=== PATIENT | male | born 1945 | race Caucasian/White ===

== ENCOUNTER 2017-02-17 10:21 | Emergency (ER) | payer MEDICARE, OTHER ==
[~2017-02-17] VITALS: Ht 180.3 cm; Wt 94.8 kg
[~2017-02-17 10:21] MED LIST: ALBU90OI INH; ASPI81EC PO; ATOR40TA PO; BENZ100A PO; CARV6.25 PO; CHOL10002 PO; CIPR500 PO; Coumadin4 MG PO; DOXY100 PO; FOLI1 PO; FURO20 PO; Hair, Skin & N1 EACH PO; INSDET100; INSDET100 SC; INSDET100 SUBQ; INSLI100I; INSLIS75I SC; INSULIN; IRBE150 PO; LAVAP17G PO; LEVO750 PO; LISI5 PO; MAGCIT300 PO; MELO7.5 PO; METF500 PO; METO25 PO; METO25ER PO; MULVITMIND PO; MULVITMINF PO; Mucinex600 MG PO; Norco 5-325 Ta1 EACH PO; OMEP20ER PO; POTCHL10ER PO; PRAV20 PO; PRED20 PO; PROCODE120 PO; SIMV80 PO; Valium5 MG PO; WARF2 PO; WARF3 PO; WARF4 PO; [UNRECOGNIZED DRUG - REMARK]; [UNRECOGNIZED DRUG - REMARK]
[2017-02-17 14:26] LABS: BASOPHILS ABSOLUTE AUTO 0.03 K/mm3 (0.00-0.23); BASOPHILS PERCENT AUTO 0 % (0-2); EOSINOPHILS ABSOLUTE AUTO 0.26 K/mm3 (0.00-0.68); EOSINOPHILS PERCENT AUTO 3 % (0-6); Hematocrit 42.3 % (37.0-53.0); Hemoglobin 13.8 g/dL (13.5-17.5); IMMATURE GRAN ABSOLUTE AUTO 0.04 K/mm3 (0.00-0.10); IMMATURE GRAN PERCENT AUTO 0 % (0-1); LYMPHOCYTES ABSOLUTE AUTO 2.16 K/mm3 (0.84-5.20); LYMPHOCYTES PERCENT AUTO 21 % (21-46); MONOCYTES ABSOLUTE AUTO 0.81 K/mm3 (0.16-1.47); MONOCYTES PERCENT AUTO 8 % (4-13); Mean Corpuscular HGB 30.1 pg (26.0-34.0); Mean Corpuscular HGB Conc 32.6 g/dL (31.5-36.5); Mean Corpuscular Volume 92 fL (80-100); Mean Platelet Volume 10.8 fL (9.1-12.4); NEUTROPHILS ABSOLUTE AUTO 7.07 K/mm3 (1.96-9.15); NEUTROPHILS PERCENT AUTO 68 % (41-73); Platelet Count 218 K/mm3 (150-400); RDW Coefficient Variation 14.6 % (11.7-14.2); RDW Standard Deviation 49.7 fL (35.1-46.3); Red Blood Cell Count 4.59 M/mm3 (4.30-5.90); White Blood Cell Count 10.37 K/mm3 (4.00-11.30)
[2017-02-17 14:39] LABS: International Normalized Ratio 1.81; Prothrombin Time Results 19.2 Sec (9.7-11.5)
[2017-02-17 14:48] LABS: Albumin, Blood 3.9 g/dL (3.4-5.0); Albumin/Globulin Ratio 0.9 (0.8-1.8); Bilirubin, Total 0.8 mg/dL (0.1-1.0); Bun/Creatinine Ratio 21.3 (12.0-20.0); Calcium, Blood 8.6 mg/dL (8.5-10.1); Creatinine, Blood 1.88 mg/dL (0.60-1.20); Globulin, Blood 4.4 g/dL (2.2-4.0); Potassium, Blood 4.6 mmol/L (3.5-5.5); Total Protein, Blood 8.3 g/dL (6.4-8.2); Troponin I 0.024 ng/mL (0.000-0.040)
== END 2017-02-17 17:16 | disposition home or self-care (01) ==
LOC: ER 10:21
PROVIDERS: Emergency Medicine
DX: J02.9 Acute pharyngitis, unspecified (principal); I11.0 Hypertensive heart disease with heart failure; I50.9 Heart failure, unspecified; E11.9 Type 2 diabetes mellitus without complications; E78.00 Pure hypercholesterolemia, unspecified; K21.9 Gastro-esophageal reflux disease without esophagitis; I48.91 Unspecified atrial fibrillation; I25.10 Atherosclerotic heart disease of native coronary artery without angina pectoris; Z79.01 Long term (current) use of anticoagulants; Z79.899 Other long term (current) drug therapy; Z79.4 Long term (current) use of insulin; Z95.1 Presence of aortocoronary bypass graft; Z95.0 Presence of cardiac pacemaker; Z87.891 Personal history of nicotine dependence
CPT/HCPCS: 36415; 71046; 80053; 83880; 84484; 85025; 85610; 87081; 87430; 93005; 93010; 99283

== ENCOUNTER → 2017-05-17 | Outpatient (CLI) | payer MEDICARE, OTHER ==
[2017-05-17 11:48] LABS: Source, Urine Clean Catch
[2017-05-17 13:29] LABS: Appearance, Urine Clear (Clear); Bilirubin, Urine Neg (Neg); Blood, Urine Neg (Neg); Color, Urine Yellow (P-Yellow); Glucose Qualitative, Urine Neg (Normal); Ketones, Urine Neg (Neg); Leukocyte Esterase, Urine Neg (Neg); Nitrite, Urine Neg (Neg); Protein, Urine Neg (Neg); Specific Gravity, Urine 1.015 (1.003-1.022); Urobilinogen, Urine NORM (Normal)
== END | disposition home or self-care (01) ==
LOC: LAB SHORT 11:45 → LAB EV 11:45
PROVIDERS: Urology
DX: N39.0 Urinary tract infection, site not specified (principal)
CPT/HCPCS: 81003; 87086

== ENCOUNTER 2018-05-03 17:43 | Emergency (ER) | payer MEDICARE, OTHER ==
[~2018-05-03] VITALS: Ht 177.8 cm; Wt 93.0 kg
[2018-05-03 19:06] LABS: BASOPHILS ABSOLUTE AUTO 0.06 K/mm3 (0.00-0.23); BASOPHILS PERCENT AUTO 1 % (0-2); EOSINOPHILS ABSOLUTE AUTO 0.22 K/mm3 (0.00-0.68); EOSINOPHILS PERCENT AUTO 2 % (0-6); Hematocrit 38.3 % (37.0-53.0); Hemoglobin 12.6 g/dL (13.5-17.5); IMMATURE GRAN ABSOLUTE AUTO 0.04 K/mm3 (0.00-0.10); IMMATURE GRAN PERCENT AUTO 0 % (0-1); LYMPHOCYTES PERCENT AUTO 19 % (21-46); MONOCYTES ABSOLUTE AUTO 1.15 K/mm3 (0.16-1.47); MONOCYTES PERCENT AUTO 11 % (4-13); Mean Corpuscular HGB 30.1 pg (26.0-34.0); Mean Corpuscular HGB Conc 32.9 g/dL (31.5-36.5); Mean Corpuscular Volume 92 fL (80-100); Mean Platelet Volume 10.7 fL (9.1-12.4); NEUTROPHILS ABSOLUTE AUTO 7.11 K/mm3 (1.96-9.15); NEUTROPHILS PERCENT AUTO 67 % (41-73); Platelet Count 191 K/mm3 (150-400); RDW Coefficient Variation 14.3 % (11.7-14.2); RDW Standard Deviation 47.6 fL (35.1-46.3); Red Blood Cell Count 4.18 M/mm3 (4.30-5.90); White Blood Cell Count 10.58 K/mm3 (4.00-11.30)
[2018-05-03 19:22] LABS: International Normalized Ratio 1.65; Prothrombin Time Results 16.7 Sec (9.7-11.5)
[2018-05-03 19:30] LABS: Albumin, Blood 3.7 g/dL (3.4-5.0); Albumin/Globulin Ratio 0.9 (0.8-1.8); Bilirubin, Total 0.5 mg/dL (0.1-1.0); Bun/Creatinine Ratio 26.6 (12.0-20.0); Calcium, Blood 8.6 mg/dL (8.5-10.1); Creatinine, Blood 1.54 mg/dL (0.60-1.20); Potassium, Blood 4.3 mmol/L (3.5-5.5); Total Protein, Blood 7.7 g/dL (6.4-8.2)
[2018-05-03] MEDS ORDERED: Keflex500 MG PO (19:41)
== END 2018-05-03 20:00 | disposition home or self-care (01) ==
LOC: ER 17:43
PROVIDERS: Emergency Medicine
DX: L03.115 Cellulitis of right lower limb (principal); I11.0 Hypertensive heart disease with heart failure; I50.9 Heart failure, unspecified; E11.9 Type 2 diabetes mellitus without complications; E78.00 Pure hypercholesterolemia, unspecified; K21.9 Gastro-esophageal reflux disease without esophagitis; I48.91 Unspecified atrial fibrillation; I25.10 Atherosclerotic heart disease of native coronary artery without angina pectoris; Z79.899 Other long term (current) drug therapy; Z79.01 Long term (current) use of anticoagulants; Z79.4 Long term (current) use of insulin; Z87.891 Personal history of nicotine dependence; Z51.81 Encounter for therapeutic drug level monitoring
CPT/HCPCS: 80053; 85025; 85610; 85730; 93971; 99284-25

== ENCOUNTER → 2019-03-30 | Outpatient (CLI) | payer MEDICARE, OTHER ==
[~2019-03-30] MED LIST changes: +Keflex500 MG PO
== END | disposition home or self-care (01) ==
LOC: LAB 16:00 → LAB SHORT 16:00
DX: E10.40 Type 1 diabetes mellitus with diabetic neuropathy, unspecified (principal)
CPT/HCPCS: 87070; 87075; 87077; 87147; 87186; 87205

== ENCOUNTER → 2019-07-13 | Outpatient (CLI) | payer MEDICARE, OTHER ==
[2019-07-13 12:50] LABS: Source, Urine Clean Catch
[2019-07-13 13:11] LABS: Appearance, Urine Cloudy (Clear); Bilirubin, Urine Neg (Neg); Blood, Urine Trace (Neg); Color, Urine Yellow (P-Yellow); Glucose Qualitative, Urine Neg (Normal); Ketones, Urine Neg (Neg); Leukocyte Esterase, Urine 2+ (Neg); Nitrite, Urine Pos (Neg); Protein, Urine Neg (Neg); Urobilinogen, Urine NORM (Normal)
[2019-07-13 13:12] LABS: Bacteria Mod /hpf; Hyaline Casts 0-2 /lpf (0-2); Red Blood Cells, Urine 0-2 /hpf (0-2); Squamous Epithelial Cells Rare /hpf (Few); White Blood Cells, Urine 25-50 /hpf (0-5)
== END ==
LOC: LAB SHORT 12:48 → LAB EV 12:48 → LAB FUT 07-12 10:40
PROVIDERS: Internal Medicine
DX: Z09 Encounter for follow-up examination after completed treatment for conditions other than malignant neoplasm (principal); Z87.440 Personal history of urinary (tract) infections
CPT/HCPCS: 81001; 87077; 87086; 87186

== ENCOUNTER → 2019-09-14 | Outpatient (CLI) | payer MEDICARE, OTHER ==
[2019-09-14 11:25] LABS: Source, Urine Clean Catch
[2019-09-14 11:42] LABS: Appearance, Urine Cloudy (Clear); Bilirubin, Urine Neg (Neg); Blood, Urine Neg (Neg); Color, Urine Yellow (P-Yellow); Glucose Qualitative, Urine Neg (Normal); Ketones, Urine Neg (Neg); Leukocyte Esterase, Urine 1+ (Neg); Nitrite, Urine Neg (Neg); Protein, Urine Neg (Neg); Specific Gravity, Urine 1.015 (1.003-1.022); Urobilinogen, Urine NORM (Normal)
[2019-09-14 11:43] LABS: Bacteria Many /hpf; Red Blood Cells, Urine Not Seen /hpf (0-2); Squamous Epithelial Cells Rare /hpf (Few)
== END ==
LOC: LAB SHORT 10:20 → LAB EV 10:20 → LAB FUT 08-15 12:20
PROVIDERS: Internal Medicine
DX: N39.0 Urinary tract infection, site not specified (principal)
CPT/HCPCS: 81001

== ENCOUNTER 2021-06-06 19:02 | Inpatient (IN) | payer MEDICARE, OTHER ==
[~2021-06-06] VITALS: Ht 182.9 cm; Wt 94.6 kg
[~2021-06-06 19:02] MED LIST changes: +BENZONATATE100 MG PO; +ELIQUIS5 M3 PO; +ENTRESTO 24 MG1 EACH PO; -INSDET100; +LEVEMIR FL100 UNIT/2 SC; +MONT10T PO; +NOVOLOG FL100 UNIT/3 SC; +ONDA4ODT MM; +PANT40 PO; +Pravastatin Sod80 MG PO; +VICTOZA 3-0.6 MG/0.2 SC
[2021-06-06] MEDS ORDERED: IRBE150 (19:22)
[2021-06-06 19:24] LABS: BASOPHILS ABSOLUTE AUTO 0.03 K/mm3 (0.00-0.23); BASOPHILS PERCENT AUTO 0 % (0-2); EOSINOPHILS ABSOLUTE AUTO 0.05 K/mm3 (0.00-0.68); EOSINOPHILS PERCENT AUTO 0 % (0-6); Hematocrit 34.8 % (37.0-53.0); Hemoglobin 11.2 g/dL (13.5-17.5); IMMATURE GRAN ABSOLUTE AUTO 0.13 K/mm3 (0.00-0.10); IMMATURE GRAN PERCENT AUTO 1 % (0-1); LYMPHOCYTES ABSOLUTE AUTO 1.03 K/mm3 (0.84-5.20); LYMPHOCYTES PERCENT AUTO 6 % (21-46); MONOCYTES ABSOLUTE AUTO 1.64 K/mm3 (0.16-1.47); MONOCYTES PERCENT AUTO 9 % (4-13); Mean Corpuscular HGB 30.2 pg (26.0-34.0); Mean Corpuscular HGB Conc 32.2 g/dL (31.5-36.5); Mean Corpuscular Volume 94 fL (80-100); Mean Platelet Volume 10.7 fL (9.1-12.4); NEUTROPHILS ABSOLUTE AUTO 15.36 K/mm3 (1.96-9.15); NEUTROPHILS PERCENT AUTO 84 % (41-73); Platelet Count 159 K/mm3 (150-400); RDW Coefficient Variation 13.9 % (11.7-14.2); RDW Standard Deviation 47.5 fL (35.1-46.3); Red Blood Cell Count 3.71 M/mm3 (4.30-5.90); White Blood Cell Count 18.24 K/mm3 (4.00-11.30)
[2021-06-06 19:41] LABS: Albumin, Blood 2.9 g/dL (3.4-5.0); Albumin/Globulin Ratio 0.7 (0.8-1.8); Bilirubin, Total 0.9 mg/dL (0.1-1.0); Bun/Creatinine Ratio 18.6 (12.0-20.0); Calcium, Blood 8.7 mg/dL (8.5-10.1); Creatinine, Blood 2.69 mg/dL (0.60-1.20); Total Protein, Blood 6.9 g/dL (6.4-8.2)
[2021-06-06 21:48] LABS: Influenza A, PCR NEGATIVE (NEGATIVE); Influenza B, PCR NEGATIVE (NEGATIVE); Resp Syncytial Virus, PCR NEGATIVE (NEGATIVE); SARS-Cov-2 (COVID-19) PCR, MMC NEGATIVE (NEGATIVE)
[2021-06-06 23:39] LABS: Source, Urine Clean Catch
[2021-06-06 23:43] LABS: Bilirubin, Urine Neg (Neg); Blood, Urine 5+ (Neg); Glucose Qualitative, Urine 1+ (Neg); Ketones, Urine Neg (Neg); Leukocyte Esterase, Urine 3+ (Neg); Nitrite, Urine Neg (Neg); Protein, Urine 3+ (Neg); Urobilinogen, Urine NORM (Normal)
[2021-06-06 23:44] LABS: Appearance, Urine Hazy (Clear); Color, Urine Yellow (P-Yellow)
[2021-06-06 23:50] LABS: Amorphous Light (0-Heavy); Bacteria Many /hpf; Red Blood Cells, Urine 50-100 /hpf (0-2); Squamous Epithelial Cells Not Seen /hpf (Few); White Blood Cells, Urine TNTC /hpf (0-5)
[2021-06-07 02:19] LABS: BASOPHILS ABSOLUTE AUTO 0.04 K/mm3 (0.00-0.23); BASOPHILS PERCENT AUTO 0 % (0-2); EOSINOPHILS ABSOLUTE AUTO 0.01 K/mm3 (0.00-0.68); EOSINOPHILS PERCENT AUTO 0 % (0-6); Hemoglobin 10.2 g/dL (13.5-17.5); IMMATURE GRAN ABSOLUTE AUTO 0.14 K/mm3 (0.00-0.10); IMMATURE GRAN PERCENT AUTO 1 % (0-1); LYMPHOCYTES ABSOLUTE AUTO 1.24 K/mm3 (0.84-5.20); LYMPHOCYTES PERCENT AUTO 7 % (21-46); MONOCYTES ABSOLUTE AUTO 1.63 K/mm3 (0.16-1.47); MONOCYTES PERCENT AUTO 10 % (4-13); Mean Corpuscular HGB 30.3 pg (26.0-34.0); Mean Corpuscular HGB Conc 31.9 g/dL (31.5-36.5); Mean Corpuscular Volume 95 fL (80-100); Mean Platelet Volume 10.5 fL (9.1-12.4); NEUTROPHILS ABSOLUTE AUTO 14.08 K/mm3 (1.96-9.15); NEUTROPHILS PERCENT AUTO 82 % (41-73); Platelet Count 141 K/mm3 (150-400); Red Blood Cell Count 3.37 M/mm3 (4.30-5.90); White Blood Cell Count 17.14 K/mm3 (4.00-11.30)
[2021-06-07 02:37] LABS: Albumin, Blood 2.6 g/dL (3.4-5.0); Albumin/Globulin Ratio 0.7 (0.8-1.8); Bilirubin, Total 0.8 mg/dL (0.1-1.0); Bun/Creatinine Ratio 19.1 (12.0-20.0); Calcium, Blood 8.3 mg/dL (8.5-10.1); Creatinine, Blood 2.67 mg/dL (0.60-1.20); Globulin, Blood 3.6 g/dL (2.2-4.0); Potassium, Blood 3.8 mmol/L (3.5-5.5); Total Protein, Blood 6.2 g/dL (6.4-8.2)
--- NOTE | 2021-06-07 04:29 | NUR ---
ADMISSION: PATIENT IS A&OX4, RECIEVED ON UNIT VIA STRETCHER. ABLE TO STAND AND AMB. TO BED. TACHYCARDIC WITH A LOW GRADE TEMP. OBSERVED. SECOND LITER BOLUS IS STARTED. PATIENT IS ORIENTED TO ROOM AND CALL PROCTOR. INSTRUCTED TO CALL FOR ASSIST OOB DUE TO MODERATE FALL RISK AND REPORTED WEAKNESS. PATIENT IS IN ENTERIC CONTACT PRECAUTIONS UNTIL STOOL FOR GI PANEL IS SENT AND RESULT'S OBTAINED TO R/O C-DIFF. PATIENT REPORT STRAIGHT CATH'S AT HOME Q 6 H. STRAIGHT CATHED IN ER AT 2335.
--- NOTE | 2021-06-07 07:47 | NUR ---
SHIFT SUMMARY: pATIENT DEVELOPED A NON PRO COUGH RESPIRATORY RATE WAS 40. LUNGS DEVELOPED CRACKLES WITH EXPIRATORY WHEEZES, HEART RATE TACHYCARDIC. PATIENT STRAIGHT CATHS AT HOME Q 6H. DR EVERETT WAS NOTIFIED. ORDER FOR 40MG LASIX IV NOW, PLACE HARTLEY AND PUT PATIENT ON CPAP/BIPAP IF RESPIRATORY RATE DOES NOT INPROVE.
[2021-06-07 11:55] LABS: Adenovirus F 40/41 Not Detected (NOT DETECT); Campylobacter Sp Not Detected (NOT DETECT); Cryptosporidium Not Detected (NOT DETECT); Cyclospora Cayetanensis Not Detected (NOT DETECT); E. Coli O157 Not Detected (NOT DETECT); Entamoeba Histolytica Not Detected (NOT DETECT); Enteroaggregative E. coli-EAEC Not Detected (NOT DETECT); Enteropathogenic E. coli-EPEC Not Detected (NOT DETECT); Enterotoxigenic E. coli-ETEC Not Detected (NOT DETECT); Giardia Lamblia Not Detected (NOT DETECT); Plesiomonas Shigelloides Not Detected (NOT DETECT); Salmonella Sp Not Detected (NOT DETECT); Shiga Toxin-prod E. coli-STEC Not Detected (NOT DETECT); Shigella/Enteroin E. coli-EIEC Not Detected (NOT DETECT); Vibrio Cholerae Not Detected (NOT DETECT); Vibrio Sp Not Detected (NOT DETECT); Yersinia Enterocolitica Not Detected (NOT DETECT)
[2021-06-07 11:56] LABS: Astrovirus Not Detected (NOT DETECT); Norovirus GI/GII Not Detected (NOT DETECT); Rotavirus A Not Detected (NOT DETECT); Sapovirus Not Detected (NOT DETECT)
--- NOTE | 2021-06-07 17:37 | NUR ---
SHIFT SUMMARY PT HAS BEEN UP IN ROOMS. DR HAS BEEN NOTIFIED SEVERAL TIME OF UNUSUAL VITAL SIGNS. HE HAS HAD SOFT BP, TACHY CARDIA AND AFIB, AND RAPID BREATHING. DR RECCOMENDED GIVING LASIX AND CONTINUING TO MONITOR VITAL SIGNS. PT IS IN NO DISTRESS, NO CHEST PAIN. HE HAS FELT SHORT OF BREATH POSITIONING DOES HELP. COSTUME MISTRESS DOC RECCOMENDED PUTTING HIM ON BIPAP TO HELP. HE HAS NOT TILERATED THE BIPAP WELL AND SAYS IT MAKES HIM FEEL SUFFOCATED. LASIX JUST ADMINISTERED. WILL CONTINUE TO MONITOR.
--- NOTE | 2021-06-07 19:59 | NUR ---
CARDIAC: PATIENT WAS GIVEN CRADIZEM FOR HR IN 140'S. PATIENT HAD FAIR HR NOW 104-112. PATIENT HAS ONLY HAD 175 OUT IN HARTLEY SINCE MULTIPLE DOSES OF LASIX WERE GIVEN. BLADDER SCAN SHOWS 0 IN BLADDER. CONT. PULSE OX ON NOW STA IS 89% 2 L NC IS APPLED.
--- NOTE | 2021-06-07 22:39 | NUR ---
CARDIAC: DR BILL ORDERED LOPRESSOR FOR HR, BP WAS 90/67, TO LOW TO GIVE MED. MIDODRINE WAS ORDERED AND GIVEN. DR BILL CAME TO BEDSIDE TO EVAL PATIENT. BP AFTER MIDODRINE WAS 103/69. LOPRESSOR WAS NONE ADMIN. DR BILL ORDERED DIGOXIN INSTEAD. PATIENT HAD GOOD EFFECT FROM DIGOXIN HR DOWN TO 89-97. PATIENT STATES "I FEEL OK, BUT I AM GETTING CONCERNED". PATIENT REQUESTED MECHANICAL MAINTENANCE TECHNICIAN NOT CALL HIS DANIELE, HE WILL CALL HE IN THE AM. "SHE WILL WORRY ALL NIGHT". ORDER WAS OBTAINED TO TRANSFER PATIENT TO PCU. REPORT WAS CALLED TO [facility]IENT [facility]ARE MANAGERMANDA [facility]AMP. PATIENT WAS TRANSFERED WITH BIPAP ON TO PCU.
[2021-06-08 05:24] LABS: BASOPHILS ABSOLUTE AUTO 0.05 K/mm3 (0.00-0.23); BASOPHILS PERCENT AUTO 0 % (0-2); EOSINOPHILS ABSOLUTE AUTO 0.35 K/mm3 (0.00-0.68); EOSINOPHILS PERCENT AUTO 2 % (0-6); Hematocrit 30.5 % (37.0-53.0); Hemoglobin 9.8 g/dL (13.5-17.5); IMMATURE GRAN ABSOLUTE AUTO 0.14 K/mm3 (0.00-0.10); IMMATURE GRAN PERCENT AUTO 1 % (0-1); LYMPHOCYTES ABSOLUTE AUTO 1.82 K/mm3 (0.84-5.20); LYMPHOCYTES PERCENT AUTO 10 % (21-46); MONOCYTES PERCENT AUTO 10 % (4-13); Mean Corpuscular HGB 30.2 pg (26.0-34.0); Mean Corpuscular HGB Conc 32.1 g/dL (31.5-36.5); Mean Corpuscular Volume 94 fL (80-100); Mean Platelet Volume 10.9 fL (9.1-12.4); NEUTROPHILS ABSOLUTE AUTO 14.17 K/mm3 (1.96-9.15); NEUTROPHILS PERCENT AUTO 77 % (41-73); Platelet Count 159 K/mm3 (150-400); RDW Coefficient Variation 13.8 % (11.7-14.2); RDW Standard Deviation 46.7 fL (35.1-46.3); Red Blood Cell Count 3.25 M/mm3 (4.30-5.90); White Blood Cell Count 18.43 K/mm3 (4.00-11.30)
[2021-06-08 05:59] LABS: Alanine Aminotransfer (ALT/SGP 16 U/L (12-78); Albumin, Blood 2.2 g/dL (3.4-5.0); Albumin/Globulin Ratio 0.6 (0.8-1.8); Alk Phos 65 U/L (50-136); Anion Gap 9 mmol/L (6-16); Aspartate Aminotrans (AST/SGOT 60 U/L (12-37); Bilirubin, Total 0.5 mg/dL (0.1-1.0); Blood Urea Nitrogen 58 mg/dL (8-24); Bun/Creatinine Ratio 15.6 (12.0-20.0); CO2, Blood 22 mmol/L (21-32); Calcium, Blood 8.5 mg/dL (8.5-10.1); Chloride, Blood 105 mmol/L (98-108); Creatinine, Blood 3.72 mg/dL (0.60-1.20); Globulin, Blood 3.8 g/dL (2.2-4.0); Glomerular Filtration Rate 16 (60-); Glucose, Blood 212 mg/dL (70-99); Potassium, Blood 3.8 mmol/L (3.5-5.5); Sodium, Blood 136 mmol/L (136-145); Vancomycin, Trough 13.1 ug/mL (5.0-10.0)
--- NOTE | 2021-06-08 06:09 | NUR ---
SHIFT SUMMER [id number] PT SLEPT WELL THROUGHOUT THE NIGHT. IS ORIENTATED X4. PT IS CURRENTLY ON BIPAP WITH 3L BLEEDING THROUGH. BLOOD PRESSURES HAVE BEEN SOFT WITH SYSTOLIC CURRENTLY >90. HARTLEY TO DEPENDANT DRAINAGE. 125ML OUTPUT. HR IN 100-110. WILL PASS ONTO DAY RN. CONTINUE TO MONITOR.
--- NOTE | 2021-06-08 18:21 | NUR ---
NO ACUTE EVENTS T/O THE SHIFT, PT RESTING COMFORTABLY IN BED, CAME IN TO VISIT TODAY. VSS. PT CONTINUES ON MIDIDRINE FOR BP SUPPORT. ON RA T/O THE DAY, BIPAP AT NIGHT NEEDED. CALL LIGHT IN REACH, WILL CONTINUE TO MONITOR AND GIVE REPORT TO ONCOMING SHIFT RN.
[2021-06-09 04:24] LABS: BASOPHILS ABSOLUTE AUTO 0.05 K/mm3 (0.00-0.23); BASOPHILS PERCENT AUTO 1 % (0-2); EOSINOPHILS ABSOLUTE AUTO 0.53 K/mm3 (0.00-0.68); EOSINOPHILS PERCENT AUTO 5 % (0-6); Hematocrit 30.5 % (37.0-53.0); Hemoglobin 9.9 g/dL (13.5-17.5); IMMATURE GRAN ABSOLUTE AUTO 0.09 K/mm3 (0.00-0.10); IMMATURE GRAN PERCENT AUTO 1 % (0-1); LYMPHOCYTES ABSOLUTE AUTO 1.65 K/mm3 (0.84-5.20); LYMPHOCYTES PERCENT AUTO 15 % (21-46); MONOCYTES ABSOLUTE AUTO 1.28 K/mm3 (0.16-1.47); MONOCYTES PERCENT AUTO 12 % (4-13); Mean Corpuscular HGB 30.2 pg (26.0-34.0); Mean Corpuscular HGB Conc 32.5 g/dL (31.5-36.5); Mean Corpuscular Volume 93 fL (80-100); Mean Platelet Volume 10.9 fL (9.1-12.4); NEUTROPHILS ABSOLUTE AUTO 7.35 K/mm3 (1.96-9.15); NEUTROPHILS PERCENT AUTO 67 % (41-73); Platelet Count 172 K/mm3 (150-400); RDW Coefficient Variation 13.6 % (11.7-14.2); RDW Standard Deviation 46.4 fL (35.1-46.3); Red Blood Cell Count 3.28 M/mm3 (4.30-5.90); White Blood Cell Count 10.95 K/mm3 (4.00-11.30)
[2021-06-09 05:00] LABS: Alanine Aminotransfer (ALT/SGP 15 U/L (12-78); Albumin, Blood 2.2 g/dL (3.4-5.0); Albumin/Globulin Ratio 0.6 (0.8-1.8); Alk Phos 60 U/L (50-136); Anion Gap 8 mmol/L (6-16); Aspartate Aminotrans (AST/SGOT 37 U/L (12-37); Bilirubin, Total 0.4 mg/dL (0.1-1.0); Blood Urea Nitrogen 67 mg/dL (8-24); CO2, Blood 22 mmol/L (21-32); Calcium, Blood 8.6 mg/dL (8.5-10.1); Chloride, Blood 107 mmol/L (98-108); Creatinine, Blood 3.19 mg/dL (0.60-1.20); Globulin, Blood 3.8 g/dL (2.2-4.0); Glomerular Filtration Rate 19 (60-); Glucose, Blood 170 mg/dL (70-99); Potassium, Blood 3.6 mmol/L (3.5-5.5); Sodium, Blood 137 mmol/L (136-145); Vancomycin, Random 23.2 ug/mL
--- NOTE | 2021-06-09 06:34 | NUR ---
SHIFT SUMMARY [id number] PT SLEPT WELL OVERNIGHT. ORIENTED X4, NO COMPLAINTS OF PAIN. VSS PER PT TREND. HARTLEY TO DD DRAINING YELLOW URINE. NO BM, ON RA. CALL LIGHT WITHIN REACH. WILL PASS ON TO DAY RN
--- NOTE | 2021-06-09 18:14 | NUR ---
ASSUMED CARE OF PT AT 0700. PT'S BP HAS IMPROVED TODAY. PT HAS HAD 1 LOOSE STOOL. PT HAS HAD NO COMPLAINTS T/O THE SHIFT. VSS. MEDICATIONS GIVEN T/O THE SHIFT PER EMAR. PT VISIT FROM HIS TODAY. NO ACUTE EVENTS. CALL LIGHT IN REACH, WILL CONTINUE TO MONITOR AND GIVE REPORT TO ONCOMING SHIFT RN.
[2021-06-10 04:15] LABS: BASOPHILS ABSOLUTE AUTO 0.07 K/mm3 (0.00-0.23); BASOPHILS PERCENT AUTO 1 % (0-2); EOSINOPHILS ABSOLUTE AUTO 0.46 K/mm3 (0.00-0.68); EOSINOPHILS PERCENT AUTO 6 % (0-6); Hematocrit 30.1 % (37.0-53.0); Hemoglobin 9.6 g/dL (13.5-17.5); IMMATURE GRAN PERCENT AUTO 1 % (0-1); LYMPHOCYTES PERCENT AUTO 18 % (21-46); MONOCYTES ABSOLUTE AUTO 1.02 K/mm3 (0.16-1.47); MONOCYTES PERCENT AUTO 12 % (4-13); Mean Corpuscular HGB 29.9 pg (26.0-34.0); Mean Corpuscular HGB Conc 31.9 g/dL (31.5-36.5); Mean Corpuscular Volume 94 fL (80-100); Mean Platelet Volume 10.6 fL (9.1-12.4); NEUTROPHILS ABSOLUTE AUTO 5.09 K/mm3 (1.96-9.15); NEUTROPHILS PERCENT AUTO 62 % (41-73); Platelet Count 188 K/mm3 (150-400); RDW Coefficient Variation 13.6 % (11.7-14.2); RDW Standard Deviation 47.3 fL (35.1-46.3); Red Blood Cell Count 3.21 M/mm3 (4.30-5.90); White Blood Cell Count 8.24 K/mm3 (4.00-11.30)
[2021-06-10 04:34] LABS: Anion Gap 8 mmol/L (6-16); Blood Urea Nitrogen 67 mg/dL (8-24); Bun/Creatinine Ratio 27.2 (12.0-20.0); CO2, Blood 21 mmol/L (21-32); Calcium, Blood 8.4 mg/dL (8.5-10.1); Chloride, Blood 111 mmol/L (98-108); Creatinine, Blood 2.46 mg/dL (0.60-1.20); Glomerular Filtration Rate 26 (60-); Glucose, Blood 188 mg/dL (70-99); Potassium, Blood 3.8 mmol/L (3.5-5.5); Sodium, Blood 140 mmol/L (136-145); Vancomycin, Random 17.8 ug/mL
--- NOTE | 2021-06-10 06:19 | NUR ---
SHIFT SUMMARY [id number] PT SLEPT WELL OVERNIGHT. NO COMPLAINTS OF PAIN. VSS PER PT TREND. ON RA OR CPAP. HARTLEY TO DD WITH ADEQUATE UOP. WILL CONTINUE TO MONITOR AND PASS ON TO DAY RN
--- NOTE | 2021-06-10 10:28 | NUR ---
CARE ASSUMPTION THIS RN ASSUMED CARE AT 0700 FROM CORAZON HOLMAN. PATIENT IS ALERT AND ORIENTED X4. PERRLA. NEURO INTACT. PATIENT REPORTS NUMBNESS AND TINGLING TO EXTREMITIES FROM HIS NEUROPATHY HE HAS. VSS. TELE AFLUTTER 80. PATIENT REPORTS NO CHEST PAIN/PRESSURE. STRONG RADIAL AND WEAK PEDIS. CAP REFILL <3SECONDS. PATIENT LUNG SOUNDS UPPER LOBES CLEAR AND LOWER LOBES DIM. ROOM AIR DURING THE DAY AND SPO2>94%, AND ON BIPAP AT NIGHT WHEN SLEEPING. NO SKIN ISSUES NOTED. PATIENT ABD IS MODERATELY DISTENED, FIRM, NONTENDER, AND ACTIVE. PATIENT HAS HARTLEY CATH IN PLACE DRAINING WITH GRAVITY, CLEAR YELLOW. CATH CARE DONE THIS AM. PATIENIT IS INDEPDENT AND CALLS WHEN HE NEEDS ASSISTANCE. PATIENT UP TO CHAIR THIS AM. CALL LIGHT WITHIN REACH. WILL CONTINUE TO MONITOR AND PROVIDE CARE. PATIENT UNDERSTANDS PLAN OF CARE AND HAS NO QUESTIONS OR CONCERNS THIS MORNING. THIS RN USED THERPEPEUTIC COMMUNICATION AND ACTIVE LISTENING WHEN INTERACTING WITH PATIENT.
--- NOTE | 2021-06-10 17:11 | NUR ---
SHIFT SUMMARY PATIENT NEURO REMAINS INTACT. NO ACUTE CHANGES. VSS. THIS RN HELD HER 1800 MIDODINE, COVERAGE WASN'T INDICATED. HARTLEY CATH IN PLACE DRAINING WITH GRAVITY, CLEAR YELLOW. PATIENT HAS MOVED FROM BED TO CHAIR INDEPENDENTLY, AND USES CALL LIGHT APPROPRIATELY. CALL LIGHT WITHIN REACH AND BED IN LOWEST POSITION. WILL CONTINUE TO MONITOR AND PROVIDE CARE UNTIL HAND OFF WITH NEXT SHIFT.
--- NOTE | 2021-06-11 05:17 | NUR ---
National Van Owner Operator Note: Pt slept well overnight. A&O. VSS on RA. IV and oral abx given per orders. Pt has grissom in place, draining well. ISO for cdiff and ESBL in urine. ACHS cbg, insulin given per orders. Tele: [email or web address].
[2021-06-11] MEDS ORDERED: Vancocin HCl250 MG PO (11:28)
--- NOTE | 2021-06-11 13:19 | NUR ---
UPDATE DISCHARGE INSTRUCTIONS PROVIDED TO PT. PT EDUCATED ON MEDICATIONS AND ALL QUESTIONS ANSWERED. PT TAKEN OUT BY BETTINA
== END 2021-06-11 13:20 | disposition home or self-care (01) | DRG 872 ==
LOC: ER 19:02 → MEDS 06-07 01:24 → PCU 06-07 22:31 → MEDS 06-08 03:31 → PCU 06-08 03:32
PROVIDERS: Emergency Medicine; Internal Medicine; ADMIT Internal Medicine
DX: A41.4 Sepsis due to anaerobes (principal); I13.0 Hypertensive heart and chronic kidney disease with heart failure and stage 1 through stage 4 chronic kidney disease, or unspecified chronic kidney disease; N39.0 Urinary tract infection, site not specified; I50.22 Chronic systolic (congestive) heart failure; A04.72 Enterocolitis due to Clostridium difficile, not specified as recurrent; I48.20 Chronic atrial fibrillation, unspecified; N17.9 Acute kidney failure, unspecified; N18.4 Chronic kidney disease, stage 4 (severe); E87.1 Hypo-osmolality and hyponatremia; R65.20 Severe sepsis without septic shock; Z20.822 Contact with and (suspected) exposure to COVID-19; E78.5 Hyperlipidemia, unspecified; K21.9 Gastro-esophageal reflux disease without esophagitis; I95.9 Hypotension, unspecified; E11.65 Type 2 diabetes mellitus with hyperglycemia; E11.22 Type 2 diabetes mellitus with diabetic chronic kidney disease; D63.1 Anemia in chronic kidney disease; E88.09 Other disorders of plasma-protein metabolism, not elsewhere classified; N32.0 Bladder-neck obstruction; G56.01 Carpal tunnel syndrome, right upper limb; I25.10 Atherosclerotic heart disease of native coronary artery without angina pectoris; R29.6 Repeated falls; Z91.81 History of falling; Z95.1 Presence of aortocoronary bypass graft; Z95.810 Presence of automatic (implantable) cardiac defibrillator; Z90.79 Acquired absence of other genital organ(s); Z98.890 Other specified postprocedural states; Z87.891 Personal history of nicotine dependence; Z88.1 Allergy status to other antibiotic agents; Z79.4 Long term (current) use of insulin; Z79.01 Long term (current) use of anticoagulants; Z79.899 Other long term (current) drug therapy
CPT/HCPCS: 0241U; 36415; 51701; 51798; 71045; 74176; 80048; 80053; 80202; 81001; 82947; 85025; 87040; 87077; 87086; 87186; 87324; 87507; 94660; 94762; 96374; 99285-25; A9270; J0694; J0696; J0713; J1160; J1815; J1940; J3370; J7030; J7040; J7060

== ENCOUNTER 2021-08-20 14:11 | Emergency (ER) | payer MEDICARE, OTHER ==
[~2021-08-20] VITALS: Ht 180.3 cm; Wt 90.7 kg
[~2021-08-20 14:11] MED LIST changes: +IRBE150; +Vancocin HCl250 MG PO
[2021-08-20] MEDS ORDERED: AMOCLA875 PO (15:57)
== END 2021-08-20 16:05 | disposition home or self-care (01) ==
LOC: ER 14:11
DX: L08.9 Local infection of the skin and subcutaneous tissue, unspecified (principal); E11.9 Type 2 diabetes mellitus without complications; I11.0 Hypertensive heart disease with heart failure; I50.9 Heart failure, unspecified; Z87.891 Personal history of nicotine dependence; Z79.4 Long term (current) use of insulin; Z79.899 Other long term (current) drug therapy
CPT/HCPCS: A9270

== ENCOUNTER 2021-09-05 23:31 | Emergency (ER) | payer MEDICARE, OTHER ==
[~2021-09-05] VITALS: Ht 180.3 cm; Wt 92.1 kg
[~2021-09-05 23:31] MED LIST changes: -ENTRESTO 24 MG1 EAC2; -ENTRESTO 97 MG1 EACH PO; -MULVITA PO; -NOVOLOG FL100 UNIT/3; -POTA10T PO; -VITAMIN D31000 UNI1 PO
[2021-09-06] MEDS ORDERED: POTA10T PO (16:12)
[2021-09-06] MEDS ORDERED: ENTRESTO 24 MG1 EAC2 (16:15)
[2021-09-07] MEDS ORDERED: ENTRESTO 97 MG1 EACH PO (12:24)
[2021-09-07] MEDS ORDERED: NOVOLOG FL100 UNIT/3 (12:25)
[2021-09-07] MEDS ORDERED: BENZ100A PO (12:26)
[2021-09-07] MEDS ORDERED: VITAMIN D31000 UNI1 PO (12:28)
[2021-09-07] MEDS ORDERED: FOLI1 PO (12:28)
[2021-09-07] MEDS ORDERED: MULVITA PO (12:30)
== END 2021-09-06 00:09 | disposition left against medical advice (07) ==
LOC: ER 23:31
DX: R05.9 Cough, unspecified (principal); R06.02 Shortness of breath; Z53.21 Procedure and treatment not carried out due to patient leaving prior to being seen by health care provider
CPT/HCPCS: 93005; 93010

== ENCOUNTER → 2021-09-05 | Outpatient (CLI) | payer MEDICARE, OTHER ==
[~2021-09-05] MED LIST changes: +AMOCLA875 PO; +ENTRESTO 24 MG1 EAC2; +ENTRESTO 97 MG1 EACH PO; +MULVITA PO; +NOVOLOG FL100 UNIT/3; +POTA10T PO; +VITAMIN D31000 UNI1 PO
[2021-09-05 09:26] LABS: BASOPHILS ABSOLUTE AUTO 0.04 K/mm3 (0.00-0.23); BASOPHILS PERCENT AUTO 0 % (0-2); EOSINOPHILS ABSOLUTE AUTO 0.22 K/mm3 (0.00-0.68); EOSINOPHILS PERCENT AUTO 2 % (0-6); Hematocrit 34.4 % (37.0-53.0); IMMATURE GRAN ABSOLUTE AUTO 0.05 K/mm3 (0.00-0.10); IMMATURE GRAN PERCENT AUTO 1 % (0-1); LYMPHOCYTES ABSOLUTE AUTO 1.18 K/mm3 (0.84-5.20); LYMPHOCYTES PERCENT AUTO 11 % (21-46); MONOCYTES ABSOLUTE AUTO 1.09 K/mm3 (0.16-1.47); MONOCYTES PERCENT AUTO 10 % (4-13); Mean Corpuscular HGB 29.3 pg (26.0-34.0); Mean Corpuscular Volume 92 fL (80-100); Mean Platelet Volume 10.7 fL (9.1-12.4); NEUTROPHILS ABSOLUTE AUTO 8.22 K/mm3 (1.96-9.15); NEUTROPHILS PERCENT AUTO 76 % (41-73); Platelet Count 208 K/mm3 (150-400); RDW Coefficient Variation 14.2 % (11.7-14.2); RDW Standard Deviation 47.5 fL (35.1-46.3); Red Blood Cell Count 3.76 M/mm3 (4.30-5.90)
[2021-09-05 09:34] LABS: Albumin, Blood 3.1 g/dL (3.4-5.0); Albumin/Globulin Ratio 0.7 (0.8-1.8); Bilirubin, Total 0.7 mg/dL (0.1-1.0); Bun/Creatinine Ratio 19.1 (12.0-20.0); Calcium, Blood 8.8 mg/dL (8.5-10.1); Creatinine, Blood 2.3 mg/dL (0.60-1.20); Globulin, Blood 4.2 g/dL (2.2-4.0); Potassium, Blood 4.2 mmol/L (3.5-5.5); Total Protein, Blood 7.3 g/dL (6.4-8.2)
== END ==
LOC: LAB SHORT 09:17 → LAB 09:17
PROVIDERS: Chiropractor
DX: M79.672 Pain in left foot (principal); M25.50 Pain in unspecified joint
CPT/HCPCS: 80053; 84550; 85025; 86430

== ENCOUNTER 2021-09-06 02:43 | Inpatient (IN) | payer MEDICARE, OTHER ==
[~2021-09-06] VITALS: Ht 180.3 cm; Wt 91.3 kg
[2021-09-06 04:15] LABS: BASOPHILS ABSOLUTE AUTO 0.02 K/mm3 (0.00-0.23); BASOPHILS PERCENT AUTO 0 % (0-2); EOSINOPHILS PERCENT AUTO 0 % (0-6); Hematocrit 33.5 % (37.0-53.0); Hemoglobin 11.1 g/dL (13.5-17.5); IMMATURE GRAN ABSOLUTE AUTO 0.05 K/mm3 (0.00-0.10); IMMATURE GRAN PERCENT AUTO 0 % (0-1); LYMPHOCYTES ABSOLUTE AUTO 1.02 K/mm3 (0.84-5.20); LYMPHOCYTES PERCENT AUTO 9 % (21-46); MONOCYTES ABSOLUTE AUTO 1.09 K/mm3 (0.16-1.47); MONOCYTES PERCENT AUTO 10 % (4-13); Mean Corpuscular HGB 29.9 pg (26.0-34.0); Mean Corpuscular HGB Conc 33.1 g/dL (31.5-36.5); Mean Corpuscular Volume 90 fL (80-100); Mean Platelet Volume 10.8 fL (9.1-12.4); NEUTROPHILS PERCENT AUTO 81 % (41-73); Platelet Count 228 K/mm3 (150-400); RDW Coefficient Variation 14.2 % (11.7-14.2); RDW Standard Deviation 46.9 fL (35.1-46.3); Red Blood Cell Count 3.71 M/mm3 (4.30-5.90); White Blood Cell Count 11.18 K/mm3 (4.00-11.30)
[2021-09-06 04:44] LABS: Albumin/Globulin Ratio 0.7 (0.8-1.8); Bilirubin, Total 0.6 mg/dL (0.1-1.0); Calcium, Blood 8.6 mg/dL (8.5-10.1); Creatinine, Blood 2.33 mg/dL (0.60-1.20); Globulin, Blood 4.1 g/dL (2.2-4.0); Potassium, Blood 4.5 mmol/L (3.5-5.5); Total Protein, Blood 7.1 g/dL (6.4-8.2)
[2021-09-06 05:54] LABS: Influenza A, PCR NEGATIVE (NEGATIVE); Influenza B, PCR NEGATIVE (NEGATIVE); Resp Syncytial Virus, PCR NEGATIVE (NEGATIVE); SARS-Cov-2 (COVID-19) PCR, MMC NEGATIVE (NEGATIVE)
[2021-09-06 09:15] LABS: International Normalized Ratio 1.16; Prothrombin Time Results 12.1 Sec (9.7-11.5)
[2021-09-06 09:16] LABS: Anti-Xa UFH, PHA Monitoring >1.50 IU/mL
[2021-09-06] MEDS ORDERED: POTA10T PO (16:12)
[2021-09-06] MEDS ORDERED: ENTRESTO 24 MG1 EAC2 (16:15)
--- NOTE | 2021-09-06 16:21 | NUR ---
Echocardiogram using 0.60ml of Definity contrast performed.
--- NOTE | 2021-09-06 18:30 | NUR ---
PCU ADMIT / END OF SHIFT NOTE PT BROUGHT TO PCU-10 BY YUNIER FROM ER @ APPROX 1600. PT A&O X4, ABLE TO STAND AND AMBULATE FROM [facility] TO PCU BED W/ SBA. HEPARIN GTT INFUSING UPON ARRIVAL TO UNIT. PT VSS. SPO2 > 92% ON 4L NC, TITRATED TO 3L NC. PT REPORTS RA @ BASELINE. MONITOR SHOWING SR-ST, HR 90s-110s. PT DENIES CP OR ANY OTHER PAIN/DISCOMFORT. PT REPORTS SELF CATHING AT HOME AFTER HAVING A PROCEDURE, PT UNABLE TO RECALL WHAT PROCEDURE HE HAD DONE. HARTLEY CATH PLACED IN ER, PATENT & DRAINING CLEAR YELLOW URINE. BLE SWOLLEN. PT REPORTS L HAND FINGER INJURY FROM CAT THAT REQUIRED ABX THAT HE COMPLETED. PT ALSO STATING L PINKY TOE INJURED BY HIS CAT LATER AFTER. PT PROVIDING CONFLICTING DETAILS, STATING HE FINISHED ABX FOR HIS TOE, THEN STATING A DOCTOR DID NOT PRESCRIBE ABX FOR TOE, BUT THEN LATER STATES HE HAS ABX AT HOME FOR HIS TOE THAT HE JUST STARTED. ABX NOTED IN MEDICATION CLAIM HX.
--- NOTE | 2021-09-07 06:30 | NUR ---
MANAGER COLLEGE SUMMARY PT IS ALERT AND COMMUNICATING APPRORPIATELY THIS SHIFT. PT HAS DENIED ANY CP OR PRESSURE THIS SHIFT. O2 SATS >90% ON 3L NC. TELE SHOWING SR 80'S W FREQUENT PVC'S THIS SHIFT. BP WNL AND STABLE. PT ABLE TO SLEEP FOR MOST OF THE NIGHT. PT NPO SINCE MIDNIGHT FOR POSSIBLE PROCEDURE. HEPARIN GTT RUNNING UNINTERUPTED THIS SHIFT. WILL REPORT TO ONCOMING RN.
[2021-09-07 08:50] LABS: Calcium, Blood 8.5 mg/dL (8.5-10.1); Creatinine, Blood 2.04 mg/dL (0.60-1.20); Potassium, Blood 3.9 mmol/L (3.5-5.5)
[2021-09-07] MEDS ORDERED: ENTRESTO 97 MG1 EACH PO (12:24)
[2021-09-07] MEDS ORDERED: NOVOLOG FL100 UNIT/3 (12:25)
[2021-09-07] MEDS ORDERED: BENZ100A PO (12:26)
[2021-09-07] MEDS ORDERED: VITAMIN D31000 UNI1 PO (12:28)
[2021-09-07] MEDS ORDERED: FOLI1 PO (12:28)
[2021-09-07] MEDS ORDERED: MULVITA PO (12:30)
--- NOTE | 2021-09-07 18:29 | NUR ---
PT SUMMARY: NO PROCEDURE WAS DONE TODAY PER DR GOODEN, HEPARIN GTT WAS STOPPED PT RESTARTED ON ELIQUIS, ENTERESTO WAS RESTARTED WELL ON LOW DOSE, CONTINUED DIURESING, PT HAS SOFT BP THIS MORNING 90'S, MAP ABOVE 60'S COREG WAS ON HOLE PROVIDER MADE AWARE. FAMILY WAS AT BEDSIDE THIS MORNING WAS ABLE TO DISCUSS PLAN OF CARE WITH BOTH PROVIDER, PT PLAN FOR CARDIAC REHAB OUTPATIENT. PT PLAN TO DISCHARGE TOMORROW IF STABLE. PT HAS BEEN CHEST PAIN FREE FOR THE SHIFT, HAD SOME EPISODES WITH SOB SATS REMAINED ABOVE 95% ON 3L OF O2, WAS ABLE TO TITRATE DOWN TO 2L PT TOLERATED WELL. PT HARTLEY DRAINING PATENT VIA GRAVITY. NO OTHER ISSUES FOR THE SHIFT, ABLE TO MAKE NEEDS KNOWN, WILL REPORT TO ONCOMING SHIFT
[2021-09-07 20:35] LABS: Source, Urine Foley catheter
[2021-09-07 20:44] LABS: Bilirubin, Urine Neg (Neg); Blood, Urine 3+ (Neg); Glucose Qualitative, Urine Neg (Neg); Ketones, Urine Neg (Neg); Leukocyte Esterase, Urine 3+ (Neg); Nitrite, Urine Pos (Neg); Protein, Urine 1+ (Neg); Specific Gravity, Urine 1.015 (1.003-1.022); Urobilinogen, Urine NORM (Normal)
[2021-09-07 21:12] LABS: Appearance, Urine Clear (Clear); Color, Urine Yellow (P-Yellow)
[2021-09-07 21:13] LABS: Bacteria Many /hpf; Red Blood Cells, Urine 0-2 /hpf (0-2); Squamous Epithelial Cells Not Seen /hpf (Few)
[2021-09-08 03:46] LABS: BASOPHILS ABSOLUTE AUTO 0.05 K/mm3 (0.00-0.23); BASOPHILS PERCENT AUTO 1 % (0-2); EOSINOPHILS ABSOLUTE AUTO 0.15 K/mm3 (0.00-0.68); EOSINOPHILS PERCENT AUTO 2 % (0-6); Hematocrit 31.6 % (37.0-53.0); Hemoglobin 10.2 g/dL (13.5-17.5); IMMATURE GRAN ABSOLUTE AUTO 0.02 K/mm3 (0.00-0.10); IMMATURE GRAN PERCENT AUTO 0 % (0-1); LYMPHOCYTES ABSOLUTE AUTO 1.41 K/mm3 (0.84-5.20); LYMPHOCYTES PERCENT AUTO 15 % (21-46); MONOCYTES ABSOLUTE AUTO 1.24 K/mm3 (0.16-1.47); MONOCYTES PERCENT AUTO 13 % (4-13); Mean Corpuscular HGB 29.3 pg (26.0-34.0); Mean Corpuscular HGB Conc 32.3 g/dL (31.5-36.5); Mean Corpuscular Volume 91 fL (80-100); Mean Platelet Volume 10.2 fL (9.1-12.4); NEUTROPHILS ABSOLUTE AUTO 6.67 K/mm3 (1.96-9.15); NEUTROPHILS PERCENT AUTO 70 % (41-73); Platelet Count 203 K/mm3 (150-400); RDW Coefficient Variation 14.3 % (11.7-14.2); RDW Standard Deviation 47.7 fL (35.1-46.3); Red Blood Cell Count 3.48 M/mm3 (4.30-5.90); White Blood Cell Count 9.54 K/mm3 (4.00-11.30)
[2021-09-08 04:13] LABS: Bun/Creatinine Ratio 26.3 (12.0-20.0); Calcium, Blood 8.7 mg/dL (8.5-10.1); Creatinine, Blood 2.05 mg/dL (0.60-1.20); Magnesium, Blood 1.9 mg/dL (1.6-2.4); Potassium, Blood 3.9 mmol/L (3.5-5.5)
--- NOTE | 2021-09-08 05:50 | NUR ---
SHIFT SUMMARY ASSUMED CARE OF PT AT 1900. PT IS A/OX4. HEART SOUNDS IRREGULAR. LUNG SOUNDS HAVE FINE CRACKLES AT BASES. PT WAS ON RA T/O THE NIGHT. HARTLEY DRAINING CLEAR YELLOW URINE. PT C/O CONSTIPATION AND ONLY ABLE TO GO A SMALL AMOUNT THIS EVENING. HOSPITALIST NOTIFIED AND BOWEL CARE ORDERED, BUT PT SLEPT THE REST OF THE NIGHT. PT WAS A 1P SBA TO BATHROOM. PT STATES FEELING MUCH BETTER. THIS AM PT HAD TRMORS WHICH HE COULD NOT REMEMBER WHAT WAS FROM. PT EXPRESSES THAT HE WANTS TO GO BACK ON HIS MEDICATION TO STOP THEM BUT DOESNT REMEMBER WHAT IT WAS CALLED.
[2021-09-08] MEDS ORDERED: TORSE20 PO (09:52)
--- NOTE | 2021-09-08 12:36 | NUR ---
DISCHARGE SUMMARY PT WAS TRANSPORTED TO PERSONAL VEHICLE BY WHEELCHAIR. ALL PERSONAL BELONGINGS AND DISCHARGE INSTRUCTIONS WERE IN PT'S POSSESSION AT TIME OF DISCHARGE. ALL QUESTIONS AND CONCERNS WERE ADDRESSED PRIOR TO DISCHARGE.
--- NOTE | 2021-09-09 13:13 | NUR ---
PHARMACY ERROR: PATIENT AND HAVE CALLED MULITPLE TIMES TO THE PHARMACY, AND PATIENT HAS NOT BEEN ABLE TO GET HIS NEW DISCHARGE MEDICATION TORSEMIDE. AFTER FAXING MULTIPLE TIMES, PHARMACY STILL DID NOT RECIEVE THE RX, SPOKE WITH PHARMACIST PERSONALLY AND CALLED IN MEDICATION. INFORMED PATIENT, AND THEY WILL CALL BACK WITH ANY QUESTIONS COMMENTS OR CONCERNS.
== END 2021-09-08 12:36 | disposition home or self-care (01) | DRG 280 ==
LOC: ER 02:43 → ERHOLD 06:40 → PCU 06:40
PROVIDERS: Family Medicine; Internal Medicine; Student in an Organized Health Care Education/Training Program; ADMIT Family Medicine
DX: I21.4 Non-ST elevation (NSTEMI) myocardial infarction (principal); I50.21 Acute systolic (congestive) heart failure; J96.01 Acute respiratory failure with hypoxia; N17.9 Acute kidney failure, unspecified; I13.0 Hypertensive heart and chronic kidney disease with heart failure and stage 1 through stage 4 chronic kidney disease, or unspecified chronic kidney disease; Z16.12 Extended spectrum beta lactamase (ESBL) resistance; I25.10 Atherosclerotic heart disease of native coronary artery without angina pectoris; Z66 Do not resuscitate; N18.30 Chronic kidney disease, stage 3 unspecified; E11.22 Type 2 diabetes mellitus with diabetic chronic kidney disease; E78.00 Pure hypercholesterolemia, unspecified; D63.1 Anemia in chronic kidney disease; N40.0 Benign prostatic hyperplasia without lower urinary tract symptoms; I48.0 Paroxysmal atrial fibrillation; K21.9 Gastro-esophageal reflux disease without esophagitis; K44.9 Diaphragmatic hernia without obstruction or gangrene; E11.65 Type 2 diabetes mellitus with hyperglycemia; I25.5 Ischemic cardiomyopathy; I24.9 Acute ischemic heart disease, unspecified; Z20.822 Contact with and (suspected) exposure to COVID-19; B96.1 Klebsiella pneumoniae [K. pneumoniae] as the cause of diseases classified elsewhere; I25.2 Old myocardial infarction; Z95.1 Presence of aortocoronary bypass graft; Z98.890 Other specified postprocedural states; Z95.810 Presence of automatic (implantable) cardiac defibrillator; Z79.899 Other long term (current) drug therapy; Z79.4 Long term (current) use of insulin; Z79.01 Long term (current) use of anticoagulants; Z79.2 Long term (current) use of antibiotics; Z87.891 Personal history of nicotine dependence
CPT/HCPCS: 0241U; 36415; 51702; 71046; 80048; 80053; 81001; 82947; 83735; 83880; 84484; 85025; 85520; 85610; 85730; 87077; 87086; 87186; 96365-59; 96366-59; 96375-59; 96376-59; 99285-25; A9270; C8929; J1644; J1815; J1940; J7030; J7040; Q9957

== ENCOUNTER 2022-01-26 11:34 | Inpatient (IN) | payer MEDICARE, OTHER ==
[~2022-01-26] VITALS: Ht 180.3 cm; Wt 94.5 kg
[~2022-01-26 11:34] MED LIST changes: +ENTRESTO 24 MG1 EAC2; +ENTRESTO 97 MG1 EACH PO; +MULVITA PO; +POTA10T PO; +TORSE20 PO; +VITAMIN D31000 UNI1 PO
[2022-01-26 12:05] LABS: BASOPHILS ABSOLUTE AUTO 0.04 K/mm3 (0.00-0.23); BASOPHILS PERCENT AUTO 0 % (0-2); EOSINOPHILS ABSOLUTE AUTO 0.24 K/mm3 (0.00-0.68); EOSINOPHILS PERCENT AUTO 2 % (0-6); Hematocrit 39.4 % (37.0-53.0); Hemoglobin 12.8 g/dL (13.5-17.5); IMMATURE GRAN ABSOLUTE AUTO 0.05 K/mm3 (0.00-0.10); IMMATURE GRAN PERCENT AUTO 0 % (0-1); LYMPHOCYTES ABSOLUTE AUTO 1.24 K/mm3 (0.84-5.20); LYMPHOCYTES PERCENT AUTO 11 % (21-46); MONOCYTES ABSOLUTE AUTO 1.17 K/mm3 (0.16-1.47); MONOCYTES PERCENT AUTO 10 % (4-13); Mean Corpuscular HGB 31.3 pg (26.0-34.0); Mean Corpuscular HGB Conc 32.5 g/dL (31.5-36.5); Mean Corpuscular Volume 96 fL (80-100); NEUTROPHILS ABSOLUTE AUTO 8.89 K/mm3 (1.96-9.15); NEUTROPHILS PERCENT AUTO 76 % (41-73); Platelet Count 200 K/mm3 (150-400); RDW Coefficient Variation 14.2 % (11.7-14.2); RDW Standard Deviation 50.7 fL (35.1-46.3); Red Blood Cell Count 4.09 M/mm3 (4.30-5.90); White Blood Cell Count 11.63 K/mm3 (4.00-11.30)
[2022-01-26 12:25] LABS: Bun/Creatinine Ratio 24.8 (12.0-20.0); Calcium, Blood 8.9 mg/dL (8.5-10.1); Creatinine, Blood 2.3 mg/dL (0.60-1.20); Potassium, Blood 5.1 mmol/L (3.5-5.5)
[2022-01-26 12:39] LABS: Influenza A, PCR NEGATIVE (NEGATIVE); Influenza B, PCR NEGATIVE (NEGATIVE); Resp Syncytial Virus, PCR NEGATIVE (NEGATIVE); SARS-Cov-2 (COVID-19) PCR, MMC NEGATIVE (NEGATIVE)
[2022-01-26 17:04] LABS: Source, Urine Foley catheter
[2022-01-26 17:10] LABS: Appearance, Urine Hazy (Clear); Bilirubin, Urine Neg (Neg); Blood, Urine 2+ (Neg); Color, Urine Yellow (P-Yellow); Glucose Qualitative, Urine Neg (Neg); Ketones, Urine Neg (Neg); Leukocyte Esterase, Urine 3+ (Neg); Nitrite, Urine Neg (Neg); Protein, Urine Neg (Neg); Urobilinogen, Urine NORM (Normal)
[2022-01-26 17:25] LABS: Hyaline Casts 0-2 /lpf (0-2)
[2022-01-26 17:26] LABS: Bacteria Many /hpf; Red Blood Cells, Urine 0-2 /hpf (0-2); Squamous Epithelial Cells Not Seen /hpf (Few)
[2022-01-27 06:03] LABS: Hematocrit 33.2 % (37.0-53.0); Hemoglobin 10.9 g/dL (13.5-17.5); Mean Corpuscular HGB 31.2 pg (26.0-34.0); Mean Corpuscular HGB Conc 32.8 g/dL (31.5-36.5); Mean Corpuscular Volume 95 fL (80-100); Platelet Count 176 K/mm3 (150-400); RDW Coefficient Variation 14.3 % (11.7-14.2); Red Blood Cell Count 3.49 M/mm3 (4.30-5.90); White Blood Cell Count 9.22 K/mm3 (4.00-11.30)
[2022-01-27 06:20] LABS: Albumin, Blood 2.7 g/dL (3.4-5.0); Anion Gap 9 mmol/L (6-16); Blood Urea Nitrogen 63 mg/dL (8-24); Bun/Creatinine Ratio 24.5 (12.0-20.0); CO2, Blood 21 mmol/L (21-32); Calcium, Blood 8.6 mg/dL (8.5-10.1); Chloride, Blood 108 mmol/L (98-108); Creatinine, Blood 2.57 mg/dL (0.60-1.20); Glomerular Filtration Rate 25 (60-); Glucose, Blood 168 mg/dL (70-99); Phosphorus, Blood 3.9 mg/dL (2.5-4.9); Potassium, Blood 4.9 mmol/L (3.5-5.5); Sodium, Blood 138 mmol/L (136-145)
[2022-01-27] MEDS ORDERED: LEVEMIR FL100 UNIT/2 SC (15:37)
--- NOTE | 2022-01-27 16:20 | NUR ---
PT ARRIVED IN THE UNIT FROM [facility] AT APPROX 1440, REPORT RECEIVED FROM NATALIE HOLMAN. PT IS HERE FOR CHF EXACERBATION. PT IS ALERT AND ORIENTED X4 AMBULATORY AT BASELINE. SELF CATH AT HOME DUE TO PROSTATE ISSUES, HARTLEY CATHETER PLACED IN THE ED. 24 HR URINE CATCH STARTED PER LAB. PT DENIES ANY CHEST PAIN/PRESSURE SINCE ARRIVAL. VITALS HRR SR 90'S, SBP 110-115'S, SATS ABOVE 90% ON 2L OF O2, AFEBRILE. LUNGS WITH CRACKLES AT THE BASES CLEAR T/O. PT ON BUMEX BID DIURETICS. TROPONIN TRENDS PER PROTOCOL. NO OTHER ISSUES AT THIS TIME, WAS CALLED FOR AN UPDATE. ABLE TO MAKE NEEDS KNOWN WILL CONTINUE TO MONITOR
[2022-01-28 04:54] LABS: Hematocrit 31.1 % (37.0-53.0); Hemoglobin 9.8 g/dL (13.5-17.5); Mean Corpuscular HGB 30.1 pg (26.0-34.0); Mean Corpuscular HGB Conc 31.5 g/dL (31.5-36.5); Mean Corpuscular Volume 95 fL (80-100); Mean Platelet Volume 10.9 fL (9.1-12.4); Platelet Count 175 K/mm3 (150-400); RDW Coefficient Variation 14.2 % (11.7-14.2); RDW Standard Deviation 48.9 fL (35.1-46.3); Red Blood Cell Count 3.26 M/mm3 (4.30-5.90); White Blood Cell Count 6.75 K/mm3 (4.00-11.30)
[2022-01-28 05:16] LABS: Albumin, Blood 2.5 g/dL (3.4-5.0); Anion Gap 9 mmol/L (6-16); Blood Urea Nitrogen 68 mg/dL (8-24); Bun/Creatinine Ratio 21.7 (12.0-20.0); CO2, Blood 22 mmol/L (21-32); Calcium, Blood 8.6 mg/dL (8.5-10.1); Chloride, Blood 106 mmol/L (98-108); Creatinine, Blood 3.13 mg/dL (0.60-1.20); Glomerular Filtration Rate 20 (60-); Glucose, Blood 121 mg/dL (70-99); Phosphorus, Blood 4.1 mg/dL (2.5-4.9); Potassium, Blood 4.5 mmol/L (3.5-5.5); Sodium, Blood 137 mmol/L (136-145)
--- NOTE | 2022-01-28 06:41 | NUR ---
SHIFT SUMMARY: PATIENT O2 NEEDS INCREASED T/O NIGHT - CURRENTLY 9L HIFLOW NC TO MAINTAIN SATS >92%. AFEBRILE, HR SR-AFIB, MAP >65. DENIES CHEST PAIN/N/V. L TOE ULCER OPEN TO AIR - PODIATRY CONSULT CALLED. LUNGS COARSE UPPER AND DIM BASES. HARTLEY DRAINING TO GRAVITY - 24 HR URINE COLLECTION IN PROGRESS. ICE BUCKETS REFRESHED T/O SHIFT. PATIENT REPOSITIONS SELF IN BED. NO ADVERSE EVENTS THIS SHIFT. MEDICATED PER EMAR. BED LOW WITH CALL LIGHT IN REACH. WILL CONTINUE TO MONITOR UNTIL REPORT TO DAY RN.
--- NOTE | 2022-01-28 17:51 | NUR ---
SHIFT SUMMARY PT IS A&OX4, 1P SBA W/ FWW FOR TX, HAS GOTTEN UP IN THE CHAIR T/O THE SHIFT, AND HAS BEEN SR 70'S-80'S ON TELE. 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 HE WAS TITRAITED DOWN AND WAS OFF OF O2 ABOUT 1300. HIS SP02 HAS SUSTAINED >90% AND HE DENIES SOB. PT HAS ALSO DENIED PAIN, ANGINA, AND N/V/D. PT WAS GIVEN SOME BOWEL PREP DUE TO C/O NOT HAVING A BM IN THREE DAYS. HE HAS BEEN COOPERATIVE WITH CARE, AND CALLS APPROPRIATELY. BED IS IN LOW, THREE SIDE RAILS UP, CALL LIGHT IS IN REACH. WILL CONTINUE TO MONITOR UNTIL SHIFT REPORT IS GIVEN TO THE ONCOMING SHIFT RN. SEE NOTES FOR ANY UPDATES.
[2022-01-28 19:34] LABS: Eosinophils-Raw #,Urine 1
--- NOTE | 2022-01-28 22:11 | NUR ---
ASSUMED PT CARE FROM VANESSA HOLMAN ON . PT IS A&OX4. DENIES ANY SOB, CHEST PAIN, OR NAUSEA. LUNG SOUNDS DEMINISHED IN BASES. O2 SATS > 92% ON RA. HR SR IN 80-90'S. DRESSING ON LEFT GREAT TOE IS C/D/I W/O ANY DRAINAGE PRESENT. PEDAL PULSES PRESENT. PT DENIES PAIN. LEFT RESTING IN BED, CALL LIGHT IN REACH. DENIES NEEDS AT THIS TIME.
[2022-01-29 09:20] LABS: BASOPHILS ABSOLUTE AUTO 0.04 K/mm3 (0.00-0.23); BASOPHILS PERCENT AUTO 1 % (0-2); EOSINOPHILS ABSOLUTE AUTO 0.41 K/mm3 (0.00-0.68); EOSINOPHILS PERCENT AUTO 6 % (0-6); Hematocrit 30.5 % (37.0-53.0); Hemoglobin 10.2 g/dL (13.5-17.5); IMMATURE GRAN ABSOLUTE AUTO 0.01 K/mm3 (0.00-0.10); IMMATURE GRAN PERCENT AUTO 0 % (0-1); LYMPHOCYTES ABSOLUTE AUTO 1.31 K/mm3 (0.84-5.20); LYMPHOCYTES PERCENT AUTO 20 % (21-46); MONOCYTES ABSOLUTE AUTO 0.88 K/mm3 (0.16-1.47); MONOCYTES PERCENT AUTO 14 % (4-13); Mean Corpuscular HGB 30.8 pg (26.0-34.0); Mean Corpuscular HGB Conc 33.4 g/dL (31.5-36.5); Mean Corpuscular Volume 92 fL (80-100); Mean Platelet Volume 10.9 fL (9.1-12.4); NEUTROPHILS ABSOLUTE AUTO 3.87 K/mm3 (1.96-9.15); NEUTROPHILS PERCENT AUTO 59 % (41-73); Platelet Count 173 K/mm3 (150-400); RDW Standard Deviation 47.5 fL (35.1-46.3); Red Blood Cell Count 3.31 M/mm3 (4.30-5.90); White Blood Cell Count 6.52 K/mm3 (4.00-11.30)
[2022-01-29 09:46] LABS: Albumin, Blood 2.5 g/dL (3.4-5.0); Anion Gap 11 mmol/L (6-16); Blood Urea Nitrogen 78 mg/dL (8-24); Bun/Creatinine Ratio 23.2 (12.0-20.0); CO2, Blood 21 mmol/L (21-32); Calcium, Blood 8.9 mg/dL (8.5-10.1); Chloride, Blood 107 mmol/L (98-108); Creatinine, Blood 3.36 mg/dL (0.60-1.20); Glomerular Filtration Rate 18 (60-); Glucose, Blood 142 mg/dL (70-99); Phosphorus, Blood 4.1 mg/dL (2.5-4.9); Potassium, Blood 4.2 mmol/L (3.5-5.5); Sodium, Blood 139 mmol/L (136-145)
--- NOTE | 2022-01-29 16:04 | NUR ---
L GREAT TOE ASSESSMENT AND PHOTO IN PT HARD CHART. WOUND CARE ORDERS IN [facility]. PT EDUCATED ON OFFLOADING, DIET, AND NEED FOR FOLLOW UP CARE SURGICAL SHOE ORDERED TO ASSIST WITH OFFLOADING. WOUND CLEANSED WITH NS, MEDIHONEY TO WOUND BED, COVERED WITH EXU-DRY. PT TOLERATED WOUND CARE WELL. OUTPATIENT WC REFERRAL ORDERED
--- NOTE | 2022-01-29 17:55 | NUR ---
PT SUMMARY: PT TRANSITIONED TO MEDICAL STATUS WITH NO TELE. NO ACUTE CHANGE REPORTED FOR THE SHIFT, VITALS STABLE. WOUND CARE NURSE CAME IN TO CHANGE TOE DRESSING, MEDIHONEY APPLIED, PT TO WEAR SURGICAL SHOES WHEN AMBULATING PER WOUND NURSE RECOMMENDATION. PT WAS ABLE TO AMBULATE AROUND THE UNIT WITHOUT ISSUES. PT DENIES ANY PAIN/DISCOMFORT. CAME IN TO VISIT AND WAS GIVEN UPDATE ABOUT THE PT. HARTLEY REMAINS IN PLACE DRAINING YELLOW URINE VIA GRAVITY, MIRALAX WITH PRUNE JUICE AWAITING FOR RESULT. PT ABLE TO MAKE NEEDS KNOWN, CALLS APPROPRIATELY. WILL REPORT TO ONCOMING SHIFT
--- NOTE | 2022-01-30 02:01 | NUR ---
PT ARRIVED TO ROOM FROM PCU VIA BED IN STABLE CONDITION. PT DENIES ANY DISCOMFORT AT THIS TIME. PT DENIES NEED FOR ANYTHING AT THIS TIME. NO APPARENT SIGNS OF DISTRESS. CALL LIGHT IS IN REACH.
[2022-01-30] MEDS ORDERED: ALLOPURINOL100 M1 PO (02:49)
[2022-01-30] MEDS ORDERED: MONT10T PO (02:50)
[2022-01-30] MEDS ORDERED: FOLI1 PO (02:51)
--- NOTE | 2022-01-30 05:09 | NUR ---
PT IS AAO X 4, DENIED DISCOMFORT FOR THIS SHIFT. ON RA. HARTLEY WITH YELLOW CLOUDY URINE. LAST BS WAS 136. L GREAT TOE WOUND I&D DONE 01/28, DRESSING C/D/I.
--- NOTE | 2022-01-30 05:09 | NUR ---
0400 PT LYING IN BED, EYES CLOSED, APPEARS TO BE RESTING. WAKES EASILY TO VERBAL STIMULI. NO APPARENT SIGNS OF DISTRESS. CALL LIGHT IS IN REACH.
--- NOTE | 2022-01-30 05:37 | NUR ---
PT LYING IN BED, EYES CLOSED, APPEARS TO BE RESTING. BREATHING IS EVEN, UNLABORED. NO APPARENT SIGNS OF DISTRESS. CALL LIGHT IS IN REACH. NO OTHER CHANGES THIS SHIFT.
[2022-01-30 07:06] LABS: Albumin, Blood 2.5 g/dL (3.4-5.0); Anion Gap 10 mmol/L (6-16); Blood Urea Nitrogen 79 mg/dL (8-24); CO2, Blood 22 mmol/L (21-32); Calcium, Blood 8.8 mg/dL (8.5-10.1); Chloride, Blood 107 mmol/L (98-108); Creatinine, Blood 2.93 mg/dL (0.60-1.20); Glomerular Filtration Rate 21 (60-); Glucose, Blood 163 mg/dL (70-99); Phosphorus, Blood 3.8 mg/dL (2.5-4.9); Potassium, Blood 4.3 mmol/L (3.5-5.5); Sodium, Blood 139 mmol/L (136-145)
[2022-01-30] MEDS ORDERED: Tessalon200 MG PO (13:13)
[2022-01-30] MEDS ORDERED: ASPI81CH PO (13:13)
[2022-01-30] MEDS ORDERED: AUGMENTIN 500-1 EACH PO (13:18)
[2022-01-30] MEDS ORDERED: VISBIOME 112.51 EACH PO (13:20)
[2022-01-30] MEDS ORDERED: ACET500 PO (13:32)
[2022-01-30] MEDS ORDERED: MIRALAX17 GM PO (13:35)
[2022-01-30 14:11] LABS: A/G RATIO 1.2 (0.7-1.7); ALBUMIN 3.3 g/dL (2.9-4.4); ALPHA-1-GLOBULIN 0.3 g/dL (0.0-0.4); ALPHA-2-GLOBULIN 0.7 g/dL (0.4-1.0); GAMMA GLOBULIN 0.7 g/dL (0.4-1.8); GLOBULIN, TOTAL 2.7 g/dL (2.2-3.9)
--- NOTE | 2022-01-30 14:30 | NUR ---
DISCHARGE NOTE- PT WAS GIVEN VERBAL AND WRITTEN DISCHARGE INSTRUCTIONS AND ACKNOWLEDGED UNDERSTANDING OF THEM. PT USES STRAIGHT CATH AT HOME FOR URINARY RETENTION, HARTLEY DC'D PRIOR TO DISCHARGE. IV DC'D PRIOR TO DISCHARGE. PT SPOUSE IS COMING TO PICK HIM UP PT INSTRUCTED TO CALL WHEN SHE ARRIVES FOR WC ESCORT OUT OF THE FACILITY.
[2022-02-05 13:09] LABS: M-SPIKE, % Not Observed % (Not Observed); PROTEIN,TOTAL,URINE 4.2 mg/dL (Not Estab.)
== END 2022-01-30 15:12 | disposition home or self-care (01) | DRG 987 ==
LOC: ER 11:34 → ERHOLD 11:35 → PCU 11:35 → MEDS 01-30 01:43
PROVIDERS: Internal Medicine Nephrology; Student in an Organized Health Care Education/Training Program; ADMIT Internal Medicine
PROC: 0JCR0ZZ Extirpation of Matter from Left Foot Subcutaneous Tissue and Fascia, Open Approach (ICD-10-PCS; principal; 2022-01-28)
DX: I13.0 Hypertensive heart and chronic kidney disease with heart failure and stage 1 through stage 4 chronic kidney disease, or unspecified chronic kidney disease (principal); I50.23 Acute on chronic systolic (congestive) heart failure; J96.01 Acute respiratory failure with hypoxia; T83.518A Infection and inflammatory reaction due to other urinary catheter, initial encounter; N13.8 Other obstructive and reflux uropathy; N18.4 Chronic kidney disease, stage 4 (severe); N17.9 Acute kidney failure, unspecified; E11.628 Type 2 diabetes mellitus with other skin complications; Z66 Do not resuscitate; Z20.822 Contact with and (suspected) exposure to COVID-19; E11.22 Type 2 diabetes mellitus with diabetic chronic kidney disease; I25.10 Atherosclerotic heart disease of native coronary artery without angina pectoris; N40.1 Benign prostatic hyperplasia with lower urinary tract symptoms; L03.032 Cellulitis of left toe; R33.8 Other retention of urine; E11.621 Type 2 diabetes mellitus with foot ulcer; D63.1 Anemia in chronic kidney disease; E78.5 Hyperlipidemia, unspecified; Z95.810 Presence of automatic (implantable) cardiac defibrillator; Z87.891 Personal history of nicotine dependence; Z79.4 Long term (current) use of insulin; Z79.01 Long term (current) use of anticoagulants; Y84.6 Urinary catheterization as the cause of abnormal reaction of the patient, or of later complication, without mention of misadventure at the time of the procedure; I25.2 Old myocardial infarction; Z79.85 Long-term (current) use of injectable non-insulin antidiabetic drugs; K21.9 Gastro-esophageal reflux disease without esophagitis; Z95.1 Presence of aortocoronary bypass graft; I48.0 Paroxysmal atrial fibrillation; Z86.718 Personal history of other venous thrombosis and embolism; M1A.9XX1 Chronic gout, unspecified, with tophus (tophi); B96.1 Klebsiella pneumoniae [K. pneumoniae] as the cause of diseases classified elsewhere; L97.522 Non-pressure chronic ulcer of other part of left foot with fat layer exposed
CPT/HCPCS: 0241U; 36415; 51702; 71045; 73660; 76770; 80048; 80069; 81001; 81050; 82306; 82570; 82947; 83605; 83880; 83970; 84156; 84165; 84166; 84484; 85025; 85027; 87077; 87086; 87186; 87205; 93005; 93010; 94760; 96365; 96375; 96376; 97110; 97110-CQ; 97162; 97530; 99285-25; A9270; J0696; J1940; J2543; J7030

== ENCOUNTER 2022-02-01 01:01 | Day surgery (SDC) | payer MEDICARE, OTHER ==
[~2022-02-01 01:01] MED LIST changes: +ACET500 PO; +ALLOPURINOL100 M1 PO; +ASPI81CH PO; +AUGMENTIN 500-1 EACH PO; +MIRALAX17 GM PO; +Tessalon200 MG PO; +VISBIOME 112.51 EACH PO
== END 2022-02-01 23:01 | disposition home or self-care (01) ==
LOC: WOUND 01:01
DX: E11.621 Type 2 diabetes mellitus with foot ulcer (principal); L97.522 Non-pressure chronic ulcer of other part of left foot with fat layer exposed; Z87.891 Personal history of nicotine dependence; L03.032 Cellulitis of left toe; E11.51 Type 2 diabetes mellitus with diabetic peripheral angiopathy without gangrene; I87.2 Venous insufficiency (chronic) (peripheral)
CPT/HCPCS: A9270; G0463

== ENCOUNTER 2022-02-08 01:31 | Day surgery (SDC) | payer MEDICARE, OTHER | END 2022-02-09 23:28 | disposition home or self-care (01) | LOC: WOUND 01:31 | DX: E11.621 Type 2 diabetes mellitus with foot ulcer (principal); L97.522 Non-pressure chronic ulcer of other part of left foot with fat layer exposed; E11.22 Type 2 diabetes mellitus with diabetic chronic kidney disease; L03.032 Cellulitis of left toe; E11.51 Type 2 diabetes mellitus with diabetic peripheral angiopathy without gangrene; N18.4 Chronic kidney disease, stage 4 (severe) | CPT/HCPCS: G0463 ==

== ENCOUNTER 2022-02-15 00:19 | Day surgery (SDC) | payer MEDICARE, OTHER | END 2022-02-15 23:27 | disposition home or self-care (01) | LOC: WOUND 00:19 | DX: E11.621 Type 2 diabetes mellitus with foot ulcer (principal); L97.526 Non-pressure chronic ulcer of other part of left foot with bone involvement without evidence of necrosis; E11.51 Type 2 diabetes mellitus with diabetic peripheral angiopathy without gangrene; R77.0 Abnormality of albumin; E11.22 Type 2 diabetes mellitus with diabetic chronic kidney disease; N18.4 Chronic kidney disease, stage 4 (severe); E11.40 Type 2 diabetes mellitus with diabetic neuropathy, unspecified | CPT/HCPCS: G0463 ==

== ENCOUNTER 2022-02-21 04:05 | Day surgery (SDC) | payer MEDICARE | END 2022-02-21 22:41 | disposition home or self-care (01) | LOC: WOUND 04:05 | DX: E11.621 Type 2 diabetes mellitus with foot ulcer (principal); L97.522 Non-pressure chronic ulcer of other part of left foot with fat layer exposed; E11.51 Type 2 diabetes mellitus with diabetic peripheral angiopathy without gangrene; E11.22 Type 2 diabetes mellitus with diabetic chronic kidney disease; N18.4 Chronic kidney disease, stage 4 (severe); E11.40 Type 2 diabetes mellitus with diabetic neuropathy, unspecified | CPT/HCPCS: A9270; G0463 ==

== ENCOUNTER 2022-03-01 02:47 | Day surgery (SDC) | payer MEDICARE, OTHER ==
[2022-03-02] MEDS ORDERED: CARV6.25 PO (05:38)
[2022-03-02] MEDS ORDERED: FOLI1 PO (05:38)
[2022-03-02] MEDS ORDERED: ALLO300 PO (05:38)
== END 2022-03-01 22:52 | disposition home or self-care (01) ==
LOC: WOUND 02:47
DX: E11.621 Type 2 diabetes mellitus with foot ulcer (principal); I73.9 Peripheral vascular disease, unspecified; R77.0 Abnormality of albumin; E11.22 Type 2 diabetes mellitus with diabetic chronic kidney disease; N18.4 Chronic kidney disease, stage 4 (severe); E11.40 Type 2 diabetes mellitus with diabetic neuropathy, unspecified
CPT/HCPCS: A9270

== ENCOUNTER 2022-03-02 05:09 | Emergency (ER) | payer MEDICARE, OTHER ==
[~2022-03-02] VITALS: Ht 180.3 cm; Wt 83.5 kg
[2022-03-02] MEDS ORDERED: CARV6.25 PO (05:38)
[2022-03-02] MEDS ORDERED: FOLI1 PO (05:38)
[2022-03-02] MEDS ORDERED: ALLO300 PO (05:38)
[2022-03-02 05:52] LABS: BASOPHILS ABSOLUTE AUTO 0.09 K/mm3 (0.00-0.23); BASOPHILS PERCENT AUTO 1 % (0-2); EOSINOPHILS ABSOLUTE AUTO 0.43 K/mm3 (0.00-0.68); EOSINOPHILS PERCENT AUTO 6 % (0-6); Hemoglobin 12.8 g/dL (13.5-17.5); IMMATURE GRAN ABSOLUTE AUTO 0.02 K/mm3 (0.00-0.10); IMMATURE GRAN PERCENT AUTO 0 % (0-1); LYMPHOCYTES ABSOLUTE AUTO 1.86 K/mm3 (0.84-5.20); LYMPHOCYTES PERCENT AUTO 24 % (21-46); MONOCYTES ABSOLUTE AUTO 0.82 K/mm3 (0.16-1.47); MONOCYTES PERCENT AUTO 11 % (4-13); Mean Corpuscular HGB 30.7 pg (26.0-34.0); Mean Corpuscular Volume 96 fL (80-100); NEUTROPHILS ABSOLUTE AUTO 4.54 K/mm3 (1.96-9.15); NEUTROPHILS PERCENT AUTO 58 % (41-73); Platelet Count 209 K/mm3 (150-400); RDW Coefficient Variation 14.6 % (11.7-14.2); RDW Standard Deviation 50.9 fL (35.1-46.3); Red Blood Cell Count 4.17 M/mm3 (4.30-5.90); White Blood Cell Count 7.76 K/mm3 (4.00-11.30)
[2022-03-02 06:13] LABS: Albumin, Blood 3.6 g/dL (3.4-5.0); Albumin/Globulin Ratio 0.9 (0.8-1.8); Bilirubin, Total 0.4 mg/dL (0.1-1.0); Bun/Creatinine Ratio 26.5 (12.0-20.0); Calcium, Blood 8.8 mg/dL (8.5-10.1); Creatinine, Blood 2.23 mg/dL (0.60-1.20); Globulin, Blood 4.2 g/dL (2.2-4.0); Potassium, Blood 4.1 mmol/L (3.5-5.5); Total Protein, Blood 7.8 g/dL (6.4-8.2)
[2022-03-02 07:41] LABS: Source, Urine Foley catheter
[2022-03-02 08:04] LABS: Bilirubin, Urine Neg (Neg); Blood, Urine Neg (Neg); Glucose Qualitative, Urine Neg (Neg); Ketones, Urine Neg (Neg); Leukocyte Esterase, Urine Neg (Neg); Nitrite, Urine Neg (Neg); Protein, Urine Neg (Neg); Urobilinogen, Urine NORM (Normal)
[2022-03-02 08:11] LABS: Appearance, Urine Clear (Clear); Color, Urine Yellow (P-Yellow)
== END 2022-03-02 09:28 | disposition home or self-care (01) ==
LOC: ER 05:09
PROVIDERS: Emergency Medicine; Student in an Organized Health Care Education/Training Program
DX: I13.0 Hypertensive heart and chronic kidney disease with heart failure and stage 1 through stage 4 chronic kidney disease, or unspecified chronic kidney disease (principal); I50.9 Heart failure, unspecified; E11.22 Type 2 diabetes mellitus with diabetic chronic kidney disease; N18.30 Chronic kidney disease, stage 3 unspecified; I25.10 Atherosclerotic heart disease of native coronary artery without angina pectoris; I25.2 Old myocardial infarction; Z87.891 Personal history of nicotine dependence
CPT/HCPCS: 36415; 51702; 71046; 80053; 81003; 83880; 84484; 85025; 93005; 93010; J1940

== ENCOUNTER 2022-03-02 21:26 | Emergency (ER) | payer MEDICARE, OTHER ==
[~2022-03-02] VITALS: Ht 180.3 cm; Wt 86.2 kg
[~2022-03-02 21:26] MED LIST changes: +ALLO300 PO
[2022-03-02 22:57] LABS: BASOPHILS ABSOLUTE AUTO 0.07 K/mm3 (0.00-0.23); BASOPHILS PERCENT AUTO 1 % (0-2); EOSINOPHILS ABSOLUTE AUTO 0.32 K/mm3 (0.00-0.68); EOSINOPHILS PERCENT AUTO 3 % (0-6); Hematocrit 38.1 % (37.0-53.0); Hemoglobin 12.5 g/dL (13.5-17.5); IMMATURE GRAN ABSOLUTE AUTO 0.03 K/mm3 (0.00-0.10); IMMATURE GRAN PERCENT AUTO 0 % (0-1); LYMPHOCYTES ABSOLUTE AUTO 1.69 K/mm3 (0.84-5.20); LYMPHOCYTES PERCENT AUTO 17 % (21-46); MONOCYTES ABSOLUTE AUTO 1.06 K/mm3 (0.16-1.47); MONOCYTES PERCENT AUTO 10 % (4-13); Mean Corpuscular HGB 30.7 pg (26.0-34.0); Mean Corpuscular HGB Conc 32.8 g/dL (31.5-36.5); Mean Corpuscular Volume 94 fL (80-100); Mean Platelet Volume 11.4 fL (9.1-12.4); NEUTROPHILS ABSOLUTE AUTO 7.09 K/mm3 (1.96-9.15); NEUTROPHILS PERCENT AUTO 69 % (41-73); Platelet Count 185 K/mm3 (150-400); RDW Coefficient Variation 14.7 % (11.7-14.2); RDW Standard Deviation 50.8 fL (35.1-46.3); Red Blood Cell Count 4.07 M/mm3 (4.30-5.90); White Blood Cell Count 10.26 K/mm3 (4.00-11.30)
[2022-03-02 23:22] LABS: Bun/Creatinine Ratio 27.2 (12.0-20.0); Creatinine, Blood 1.95 mg/dL (0.60-1.20); Potassium, Blood 4.8 mmol/L (3.5-5.5)
== END 2022-03-03 00:20 | disposition home or self-care (01) ==
LOC: ER 21:26
PROVIDERS: Emergency Medicine
DX: I13.0 Hypertensive heart and chronic kidney disease with heart failure and stage 1 through stage 4 chronic kidney disease, or unspecified chronic kidney disease (principal); E11.22 Type 2 diabetes mellitus with diabetic chronic kidney disease; N18.30 Chronic kidney disease, stage 3 unspecified; I50.9 Heart failure, unspecified; I25.10 Atherosclerotic heart disease of native coronary artery without angina pectoris; I25.2 Old myocardial infarction; Z95.1 Presence of aortocoronary bypass graft; Z79.899 Other long term (current) drug therapy; E78.5 Hyperlipidemia, unspecified; Z79.4 Long term (current) use of insulin; Z87.891 Personal history of nicotine dependence
CPT/HCPCS: 51798; 71045; 80048; 85025

== ENCOUNTER 2022-03-18 00:04 | Day surgery (SDC) | payer MEDICARE, OTHER | END 2022-03-18 22:50 | disposition home or self-care (01) | LOC: WOUND 00:04 | DX: E11.621 Type 2 diabetes mellitus with foot ulcer (principal); L97.522 Non-pressure chronic ulcer of other part of left foot with fat layer exposed; E11.40 Type 2 diabetes mellitus with diabetic neuropathy, unspecified; E11.22 Type 2 diabetes mellitus with diabetic chronic kidney disease; N18.4 Chronic kidney disease, stage 4 (severe); I73.9 Peripheral vascular disease, unspecified | CPT/HCPCS: A9270 ==

== ENCOUNTER 2022-03-26 01:03 | Day surgery (SDC) | payer MEDICARE, OTHER | END 2022-03-26 22:48 | disposition home or self-care (01) | LOC: WOUND 01:03 | DX: E11.621 Type 2 diabetes mellitus with foot ulcer (principal); L97.522 Non-pressure chronic ulcer of other part of left foot with fat layer exposed; I73.9 Peripheral vascular disease, unspecified; R77.0 Abnormality of albumin; E11.22 Type 2 diabetes mellitus with diabetic chronic kidney disease; N18.4 Chronic kidney disease, stage 4 (severe); E11.40 Type 2 diabetes mellitus with diabetic neuropathy, unspecified | CPT/HCPCS: G0463 ==

== ENCOUNTER 2022-04-08 00:28 | Day surgery (SDC) | payer MEDICARE, OTHER | END 2022-04-08 22:35 | disposition home or self-care (01) | LOC: WOUND 00:28 | DX: E11.621 Type 2 diabetes mellitus with foot ulcer (principal); L97.522 Non-pressure chronic ulcer of other part of left foot with fat layer exposed; E11.51 Type 2 diabetes mellitus with diabetic peripheral angiopathy without gangrene; E11.22 Type 2 diabetes mellitus with diabetic chronic kidney disease; N18.4 Chronic kidney disease, stage 4 (severe); E11.40 Type 2 diabetes mellitus with diabetic neuropathy, unspecified | CPT/HCPCS: A9270 ==

== ENCOUNTER 2022-04-15 00:58 | Day surgery (SDC) | payer MEDICARE, OTHER | END 2022-04-15 23:34 | disposition home or self-care (01) | LOC: WOUND 00:58 | DX: E11.621 Type 2 diabetes mellitus with foot ulcer (principal); L97.522 Non-pressure chronic ulcer of other part of left foot with fat layer exposed; E11.40 Type 2 diabetes mellitus with diabetic neuropathy, unspecified; E11.51 Type 2 diabetes mellitus with diabetic peripheral angiopathy without gangrene; E11.22 Type 2 diabetes mellitus with diabetic chronic kidney disease; N18.4 Chronic kidney disease, stage 4 (severe); R77.0 Abnormality of albumin | CPT/HCPCS: G0463 ==

== ENCOUNTER 2022-04-29 00:30 | Day surgery (SDC) | payer MEDICARE, OTHER | END 2022-04-29 22:38 | disposition home or self-care (01) | LOC: WOUND 00:30 | DX: E11.51 Type 2 diabetes mellitus with diabetic peripheral angiopathy without gangrene (principal); R77.0 Abnormality of albumin; N18.4 Chronic kidney disease, stage 4 (severe); E11.22 Type 2 diabetes mellitus with diabetic chronic kidney disease; E11.40 Type 2 diabetes mellitus with diabetic neuropathy, unspecified | CPT/HCPCS: G0463 ==

== ENCOUNTER 2022-06-17 18:35 | Inpatient (IN) | payer MEDICARE, OTHER ==
[~2022-06-17] VITALS: Ht 180.3 cm; Wt 87.7 kg
[2022-06-17 19:21] LABS: BASOPHILS ABSOLUTE AUTO 0.09 K/mm3 (0.00-0.23); BASOPHILS PERCENT AUTO 1 % (0-2); EOSINOPHILS ABSOLUTE AUTO 0.45 K/mm3 (0.00-0.68); EOSINOPHILS PERCENT AUTO 3 % (0-6); Hemoglobin 13.1 g/dL (13.5-17.5); IMMATURE GRAN ABSOLUTE AUTO 0.04 K/mm3 (0.00-0.10); IMMATURE GRAN PERCENT AUTO 0 % (0-1); LYMPHOCYTES ABSOLUTE AUTO 1.29 K/mm3 (0.84-5.20); LYMPHOCYTES PERCENT AUTO 10 % (21-46); MONOCYTES ABSOLUTE AUTO 0.88 K/mm3 (0.16-1.47); MONOCYTES PERCENT AUTO 7 % (4-13); Mean Corpuscular HGB 30.5 pg (26.0-34.0); Mean Corpuscular Volume 96 fL (80-100); NEUTROPHILS PERCENT AUTO 80 % (41-73); Platelet Count 215 K/mm3 (150-400); RDW Coefficient Variation 15.6 % (11.7-14.2); RDW Standard Deviation 54.6 fL (35.1-46.3); Red Blood Cell Count 4.29 M/mm3 (4.30-5.90); White Blood Cell Count 13.45 K/mm3 (4.00-11.30)
[2022-06-17 19:43] LABS: Albumin, Blood 3.7 g/dL (3.4-5.0); Albumin/Globulin Ratio 0.9 (0.8-1.8); Bilirubin, Total 1.1 mg/dL (0.1-1.0); Bun/Creatinine Ratio 22.8 (12.0-20.0); Calcium, Blood 9.6 mg/dL (8.5-10.1); Creatinine, Blood 2.02 mg/dL (0.60-1.20); Globulin, Blood 3.9 g/dL (2.2-4.0); Potassium, Blood 5.4 mmol/L (3.5-5.5); Total Protein, Blood 7.6 g/dL (6.4-8.2)
[2022-06-17 20:48] LABS: Influenza A, PCR NEGATIVE (NEGATIVE); Influenza B, PCR NEGATIVE (NEGATIVE); Resp Syncytial Virus, PCR NEGATIVE (NEGATIVE); SARS-Cov-2 (COVID-19) PCR, MMC NEGATIVE (NEGATIVE)
[2022-06-18 00:12] LABS: Source, Urine Straight Cath
[2022-06-18 00:18] LABS: Bilirubin, Urine Neg (Neg); Blood, Urine Neg (Neg); Glucose Qualitative, Urine Neg (Neg); Ketones, Urine Neg (Neg); Leukocyte Esterase, Urine 1+ (Neg); Nitrite, Urine Neg (Neg); Protein, Urine 2+ (Neg); Urobilinogen, Urine NORM (Normal)
[2022-06-18 00:28] LABS: Color, Urine Yellow (P-Yellow)
[2022-06-18 00:30] LABS: Appearance, Urine Hazy (Clear); Bacteria Mod /hpf; Red Blood Cells, Urine 0-2 /hpf (0-2); Squamous Epithelial Cells Not Seen /hpf (Few)
[2022-06-18 00:46] VITALS: BP 129/84
[2022-06-18 04:13] VITALS: BP 120/80
[2022-06-18 04:42] LABS: BASOPHILS ABSOLUTE AUTO 0.04 K/mm3 (0.00-0.23); BASOPHILS PERCENT AUTO 0 % (0-2); EOSINOPHILS ABSOLUTE AUTO 0.11 K/mm3 (0.00-0.68); EOSINOPHILS PERCENT AUTO 1 % (0-6); Hematocrit 35.6 % (37.0-53.0); Hemoglobin 11.4 g/dL (13.5-17.5); IMMATURE GRAN ABSOLUTE AUTO 0.02 K/mm3 (0.00-0.10); IMMATURE GRAN PERCENT AUTO 0 % (0-1); LYMPHOCYTES ABSOLUTE AUTO 1.29 K/mm3 (0.84-5.20); LYMPHOCYTES PERCENT AUTO 14 % (21-46); MONOCYTES ABSOLUTE AUTO 0.93 K/mm3 (0.16-1.47); MONOCYTES PERCENT AUTO 10 % (4-13); Mean Corpuscular HGB 30.2 pg (26.0-34.0); Mean Corpuscular Volume 94 fL (80-100); Mean Platelet Volume 12.2 fL (9.1-12.4); NEUTROPHILS ABSOLUTE AUTO 6.64 K/mm3 (1.96-9.15); NEUTROPHILS PERCENT AUTO 74 % (41-73); Platelet Count 161 K/mm3 (150-400); RDW Coefficient Variation 15.7 % (11.7-14.2); RDW Standard Deviation 54.4 fL (35.1-46.3); Red Blood Cell Count 3.77 M/mm3 (4.30-5.90); White Blood Cell Count 9.03 K/mm3 (4.00-11.30)
--- NOTE | 2022-06-18 04:56 | NUR ---
Shift Summary Pt admitted to this floor from ED w dx of CHF exacerbation. Pt started on Lasix in ED. Pt straight caths at home from chronic retention, a Strange catheter was placed in ED. Good output tonight. Pt has +2 pitting edema BLE and some coarseness in his lungs. He is on Tele running sinus tach around 110. BNP was 3600 in ED per report. Urine sample came back positive for moderate bacteria. Pt on 3L O2 NC, BL is 1.5 during nighttime at home. No c/o pain or SoB. AOx4, indepenent in room, pleasant and cooperative. Slept well t/o the night.
[2022-06-18 04:58] LABS: Bun/Creatinine Ratio 24.8 (12.0-20.0); Calcium, Blood 9.1 mg/dL (8.5-10.1); Creatinine, Blood 2.06 mg/dL (0.60-1.20); Potassium, Blood 4.8 mmol/L (3.5-5.5)
[2022-06-18 07:45] VITALS: BP 115/80
[2022-06-18 15:37] LABS: Bun/Creatinine Ratio 24.5 (12.0-20.0); Calcium, Blood 9.6 mg/dL (8.5-10.1); Creatinine, Blood 2.2 mg/dL (0.60-1.20)
[2022-06-18 15:49] VITALS: BP 114/86
--- NOTE | 2022-06-18 16:37 | NUR ---
SHIFT SUMMARY PT A&OX4 AND IN PLEASENT MOOD T/O SHIFT. HARTLEY DRAINING TO GRAVITY, LASIX DOSE INCREASED THIS SHIFT. REPORTS PROBABLE DC TOMORROW PENDING ECHO RESULTS. PT REPORTS BLOATING, THIS RN PROVIDED PT W/ PRUNE JUICE AND MEDICATED PER EMAR. CALL LIGHT W/IN REACH. TELE IN PLACE-SINUS TACH.
[2022-06-18 19:29] VITALS: BP 101/70
[2022-06-19 02:45] VITALS: BP 110/81
[2022-06-19 04:43] LABS: BASOPHILS ABSOLUTE AUTO 0.05 K/mm3 (0.00-0.23); BASOPHILS PERCENT AUTO 1 % (0-2); EOSINOPHILS ABSOLUTE AUTO 0.44 K/mm3 (0.00-0.68); EOSINOPHILS PERCENT AUTO 6 % (0-6); Hemoglobin 10.8 g/dL (13.5-17.5); IMMATURE GRAN ABSOLUTE AUTO 0.02 K/mm3 (0.00-0.10); IMMATURE GRAN PERCENT AUTO 0 % (0-1); LYMPHOCYTES ABSOLUTE AUTO 1.71 K/mm3 (0.84-5.20); LYMPHOCYTES PERCENT AUTO 22 % (21-46); MONOCYTES ABSOLUTE AUTO 0.99 K/mm3 (0.16-1.47); MONOCYTES PERCENT AUTO 13 % (4-13); Mean Corpuscular HGB 30.4 pg (26.0-34.0); Mean Corpuscular HGB Conc 31.8 g/dL (31.5-36.5); Mean Corpuscular Volume 96 fL (80-100); Mean Platelet Volume 11.7 fL (9.1-12.4); NEUTROPHILS ABSOLUTE AUTO 4.62 K/mm3 (1.96-9.15); NEUTROPHILS PERCENT AUTO 59 % (41-73); Platelet Count 136 K/mm3 (150-400); RDW Coefficient Variation 15.2 % (11.7-14.2); RDW Standard Deviation 53.8 fL (35.1-46.3); Red Blood Cell Count 3.55 M/mm3 (4.30-5.90); White Blood Cell Count 7.83 K/mm3 (4.00-11.30)
[2022-06-19 05:05] LABS: Albumin, Blood 2.9 g/dL (3.4-5.0); Albumin/Globulin Ratio 0.9 (0.8-1.8); Bilirubin, Total 1.1 mg/dL (0.1-1.0); Bun/Creatinine Ratio 24.9 (12.0-20.0); Calcium, Blood 8.8 mg/dL (8.5-10.1); Creatinine, Blood 2.29 mg/dL (0.60-1.20); Globulin, Blood 3.1 g/dL (2.2-4.0); Potassium, Blood 3.8 mmol/L (3.5-5.5)
--- NOTE | 2022-06-19 05:34 | NUR ---
Shift Summary Pt states he continues to feel better. ordered isolation status because pt has a history of ESBL in urine and preliminary results show unidentified growth in urine sample. Pt states he had a loose bowel movement yesterday morning and then had another loose bowel movement tonight. Pt also has a history of C-DIFF. Pt rcvd Tessalon pearls and Claritin for cough and allergies. He was started on NS @ 75 at 0000 as ordered. No c/o pain or nausea. AOx4, VSS, slept well t/o the night, pleasant and cooperative with care.
[2022-06-19 07:16] VITALS: BP 113/83
--- NOTE | 2022-06-19 15:04 | NUR ---
PT AWAKE DURING SHIFT REPORT, SITTING UP IN BED, WATCHING TV. IN CONTACT ISOLATION FOR POSSIBLE ESBL IN THE URINE. HARTLEY CATH PATENT AND DRAINING CL YELLOW URINE. PER REPORT, HARTLEY PLACED D/T RETENSION, PT HAS TO STRAIGHT CATH AT HOME. PT IS A&O, PLEASANT AND CO-OP. WEAK, BUT SOMEWHAT INDEPENDENT IN RM. BASELINE TREMORS TO HANDS. 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 PT GIVEN SEVERAL DIFFERENT MEDS FOR BOWEL CARE ON PREVIOUS SHIFTS. BOWEL CARE HELD THIS AM, PER PT REQUEST. DISCUSSED WITH HOSPITALIST PRIOR TO HOLDING. PT WITH HX OF CONSTIPATION AT HOME. PT STATUS IMPROVING OVERALL. D/C ORDERS PLACED. D/C MEDS FAXED TO [facility] PER PT REQUEST. D/C INSTRUCTIONS REVIEWED WITH PT; VERBALIZED UNDERSTANDING. PT ASSISTED OUT TO 'S CAR VIA W/C, UPON HER ARRIVAL. ALL BELONGINGS WENT WITH PT.
== END 2022-06-19 14:26 | disposition home or self-care (01) | DRG 291 ==
LOC: ER 18:35 → MEDS 18:36
PROVIDERS: Emergency Medicine; Family Medicine; Student in an Organized Health Care Education/Training Program; ADMIT Internal Medicine
PROC: 0T9B70Z Drainage of Bladder with Drainage Device, Via Natural or Artificial Opening (ICD-10-PCS; principal; 2022-06-17)
DX: I13.0 Hypertensive heart and chronic kidney disease with heart failure and stage 1 through stage 4 chronic kidney disease, or unspecified chronic kidney disease (principal); I50.23 Acute on chronic systolic (congestive) heart failure; R65.10 Systemic inflammatory response syndrome (SIRS) of non-infectious origin without acute organ dysfunction; N39.0 Urinary tract infection, site not specified; I48.91 Unspecified atrial fibrillation; N18.30 Chronic kidney disease, stage 3 unspecified; Z66 Do not resuscitate; E11.22 Type 2 diabetes mellitus with diabetic chronic kidney disease; R33.9 Retention of urine, unspecified; B95.2 Enterococcus as the cause of diseases classified elsewhere; K59.09 Other constipation; Z20.822 Contact with and (suspected) exposure to COVID-19; E78.5 Hyperlipidemia, unspecified; K21.9 Gastro-esophageal reflux disease without esophagitis; I25.10 Atherosclerotic heart disease of native coronary artery without angina pectoris; K44.9 Diaphragmatic hernia without obstruction or gangrene; Z95.1 Presence of aortocoronary bypass graft; Z98.890 Other specified postprocedural states; Z95.810 Presence of automatic (implantable) cardiac defibrillator; I25.2 Old myocardial infarction; Z87.891 Personal history of nicotine dependence; Z79.4 Long term (current) use of insulin; Z79.899 Other long term (current) drug therapy; Z79.01 Long term (current) use of anticoagulants
CPT/HCPCS: 0241U; 36415; 51702; 71046; 80048; 80053; 81001; 82947; 83036; 83605; 83735; 83880; 84484; 85025; 87077; 87086; 87186; 93005; 93010; 96374-59; 99285-25; A9270; J1815; J1940; J2185; J7030

== ENCOUNTER 2022-09-11 23:26 | Emergency (ER) | payer MEDICARE, OTHER ==
[~2022-09-11] VITALS: Ht 180.3 cm; Wt 88.5 kg
[2022-09-11 23:58] LABS: BASOPHILS ABSOLUTE AUTO 0.08 K/mm3 (0.00-0.23); BASOPHILS PERCENT AUTO 1 % (0-2); EOSINOPHILS ABSOLUTE AUTO 0.57 K/mm3 (0.00-0.68); EOSINOPHILS PERCENT AUTO 8 % (0-6); Hematocrit 38.8 % (37.0-53.0); Hemoglobin 12.3 g/dL (13.5-17.5); IMMATURE GRAN ABSOLUTE AUTO 0.01 K/mm3 (0.00-0.10); IMMATURE GRAN PERCENT AUTO 0 % (0-1); LYMPHOCYTES ABSOLUTE AUTO 1.63 K/mm3 (0.84-5.20); LYMPHOCYTES PERCENT AUTO 21 % (21-46); MONOCYTES ABSOLUTE AUTO 1.01 K/mm3 (0.16-1.47); MONOCYTES PERCENT AUTO 13 % (4-13); Mean Corpuscular HGB 31.1 pg (26.0-34.0); Mean Corpuscular HGB Conc 31.7 g/dL (31.5-36.5); Mean Corpuscular Volume 98 fL (80-100); Mean Platelet Volume 12.2 fL (9.1-12.4); NEUTROPHILS ABSOLUTE AUTO 4.33 K/mm3 (1.96-9.15); NEUTROPHILS PERCENT AUTO 57 % (41-73); Platelet Count 155 K/mm3 (150-400); RDW Coefficient Variation 16.4 % (11.7-14.2); RDW Standard Deviation 59.2 fL (35.1-46.3); Red Blood Cell Count 3.95 M/mm3 (4.30-5.90); White Blood Cell Count 7.63 K/mm3 (4.00-11.30)
[2022-09-12 00:09] LABS: Albumin, Blood 3.4 g/dL (3.4-5.0); Bilirubin, Total 0.6 mg/dL (0.1-1.0); Calcium, Blood 8.8 mg/dL (8.5-10.1); Globulin, Blood 3.5 g/dL (2.2-4.0); Potassium, Blood 5.6 mmol/L (3.5-5.5); Total Protein, Blood 6.9 g/dL (6.4-8.2)
[2022-09-12 03:29] VITALS: BP 120/96
== END 2022-09-12 03:30 | disposition home or self-care (01) ==
LOC: ER 23:26
PROVIDERS: Emergency Medicine
DX: I13.0 Hypertensive heart and chronic kidney disease with heart failure and stage 1 through stage 4 chronic kidney disease, or unspecified chronic kidney disease (principal); E11.22 Type 2 diabetes mellitus with diabetic chronic kidney disease; N18.30 Chronic kidney disease, stage 3 unspecified; I50.9 Heart failure, unspecified; I25.2 Old myocardial infarction; Z79.01 Long term (current) use of anticoagulants; Z79.4 Long term (current) use of insulin; Z79.899 Other long term (current) drug therapy; Z95.1 Presence of aortocoronary bypass graft; Z87.891 Personal history of nicotine dependence
CPT/HCPCS: 71046; 80053; 83880; 84484; 85025; 93005; 93010; 96374; 99285-25; J1940

== ENCOUNTER 2022-11-19 20:01 | Inpatient (IN) | payer MEDICARE, OTHER ==
[~2022-11-19] VITALS: Ht 180.3 cm; Wt 95.5 kg
[~2022-11-19 20:01] MED LIST changes: +HUMALOG KW100 UNIT/1 SC
[2022-11-19 20:35] LABS: Calcium, Ionized (POC) 0.95 mmol/L (1.10-1.46); Chloride (POC) 111 mmol/L (98-108); Creatinine (POC) 4.6 mg/dL (0.8-1.3); Glucose (ISTAT POC) 291 mg/dL (70-99); Hemoglobin (POC) 13.6 g/dL (13.5-17.5); Potassium (POC) 7.3 mmol/L (3.5-5.5); Sodium (POC) 133 mmol/L (135-148); Total CO2 (POC) 18 mmol/L (21-32)
[2022-11-19 20:43] LABS: Hematocrit 40.4 % (37.0-53.0); Hemoglobin 12.5 g/dL (13.5-17.5); Mean Corpuscular HGB 30.9 pg (26.0-34.0); Mean Corpuscular HGB Conc 30.9 g/dL (31.5-36.5); Mean Corpuscular Volume 100 fL (80-100); Mean Platelet Volume 12.8 fL (9.1-12.4); Platelet Count 114 K/mm3 (150-400); RDW Standard Deviation 59.2 fL (35.1-46.3); Red Blood Cell Count 4.04 M/mm3 (4.30-5.90); White Blood Cell Count 8.29 K/mm3 (4.00-11.30)
[2022-11-19 20:57] LABS: Magnesium, Blood 3.3 mg/dL (1.6-2.4)
[2022-11-19 21:06] LABS: Albumin, Blood 3.3 g/dL (3.4-5.0); Albumin/Globulin Ratio 0.9 (0.8-1.8); Bilirubin, Total 0.8 mg/dL (0.1-1.0); Calcium, Blood 8.5 mg/dL (8.5-10.1); Creatinine, Blood 3.93 mg/dL (0.60-1.20); Globulin, Blood 3.6 g/dL (2.2-4.0); Potassium, Blood 7.5 mmol/L (3.5-5.5); Total Protein, Blood 6.9 g/dL (6.4-8.2)
[2022-11-19 21:35] LABS: Calcium, Ionized (POC) 1.24 mmol/L (1.10-1.46); Chloride (POC) 110 mmol/L (98-108); Creatinine (POC) 3.8 mg/dL (0.8-1.3); Glucose (ISTAT POC) 240 mg/dL (70-99); Hemoglobin (POC) 10.2 g/dL (13.5-17.5); Potassium (POC) 5.3 mmol/L (3.5-5.5); Sodium (POC) 123 mmol/L (135-148); Total CO2 (POC) 20 mmol/L (21-32)
[2022-11-20] VITALS (42 sets, daily range): BP systolic 80–125; BP diastolic 55–104
[2022-11-20 00:03] LABS: Bun/Creatinine Ratio 27.9 (12.0-20.0); Calcium, Blood 10.4 mg/dL (8.5-10.1); Creatinine, Blood 3.84 mg/dL (0.60-1.20); Potassium, Blood 5.9 mmol/L (3.5-5.5)
--- NOTE | 2022-11-20 01:00 | NUR ---
ER ADMIT TO ICU 10 PT ARRIVED TO THE UNIT AT 2303; PT ADMITTED TO THE UNIT WITH ACUTE HYPERKALEMIA. PT ARRIVED TO THE UNIT ON BIPAP WITH SETTINGS 16/8, FIO2 80%; SPO2 98< AND LUNG SOUNDS WERE CLEAR WITH DIM BASES BILATERALLY. AFTER PT SETTLED, O2 TITRATED DOWN AND PT SWITCHED OVER TO NC @ 2LPM WITH SPO2 99<, AND LUNG SOUNDS REMAIN UNCHANGED. PT A&O X 4, AND FOLLOWING ALL DIRECTIONS. PT SR ON MONITOR WITH PVC'S; HR 70'S, SBP 100'S AND MAP 65<. PT DENIES CHEST PAIN/PRESSURE AND SOB AT THIS TIME. HYPERACTIVE BOWEL SOUNDS NOTED IN ALL QUADRANTS; ABD ROUND, NON-TENDER, AND PT TOLERATING SIPS OF WATER. PT STATES THAT HE HAS BEEN HAVING DIARRHEA FOR THE PAST COUPLE OF DAYS. HARTLEY PRESENT AND PATENT, DRAINING TO GRAVITY; URINE IS YELLOW, CLEAR. PT STATES THAT HE STRAIGHT CATHS AT HOME. SKIN OVERALL INTACT; SOME REDDNESS NOTED ON COCCYX BUT REMAINS BLANCHABLE. PIV X 3 THAT ARE ALL SALINE LOCKED. PT DENIES PAIN COMPLAINTS AT THIS TIME. PT ABLE TO CHANGE POSITION IN BED INDEPENDENTLY. BED LOWERED, CALL LIGHT IN REACH.
[2022-11-20 03:49] LABS: Base Excess Venous -7.3 mmol/L; Bicarbonate Venous 19.4 mmol/L (24.0-30.0); PCO2 Venous 30.9 mmHg (38-42); pH Blood Venous 7.37 (7.34-7.37)
[2022-11-20 04:19] LABS: BASOPHILS ABSOLUTE AUTO 0.03 K/mm3 (0.00-0.23); BASOPHILS PERCENT AUTO 0 % (0-2); EOSINOPHILS ABSOLUTE AUTO 0.02 K/mm3 (0.00-0.68); EOSINOPHILS PERCENT AUTO 0 % (0-6); Hematocrit 37.5 % (37.0-53.0); Hemoglobin 11.8 g/dL (13.5-17.5); IMMATURE GRAN ABSOLUTE AUTO 0.04 K/mm3 (0.00-0.10); IMMATURE GRAN PERCENT AUTO 0 % (0-1); LYMPHOCYTES ABSOLUTE AUTO 1.13 K/mm3 (0.84-5.20); LYMPHOCYTES PERCENT AUTO 11 % (21-46); MONOCYTES ABSOLUTE AUTO 0.99 K/mm3 (0.16-1.47); MONOCYTES PERCENT AUTO 10 % (4-13); Mean Corpuscular HGB Conc 31.5 g/dL (31.5-36.5); Mean Corpuscular Volume 98 fL (80-100); Mean Platelet Volume 12.6 fL (9.1-12.4); NEUTROPHILS ABSOLUTE AUTO 8.11 K/mm3 (1.96-9.15); NEUTROPHILS PERCENT AUTO 79 % (41-73); Platelet Count 112 K/mm3 (150-400); RDW Coefficient Variation 16.1 % (11.7-14.2); RDW Standard Deviation 58.1 fL (35.1-46.3); Red Blood Cell Count 3.81 M/mm3 (4.30-5.90); White Blood Cell Count 10.32 K/mm3 (4.00-11.30)
[2022-11-20 05:12] LABS: Albumin, Blood 3.2 g/dL (3.4-5.0); Bilirubin, Total 1.1 mg/dL (0.1-1.0); Bun/Creatinine Ratio 30.5 (12.0-20.0); Calcium, Blood 10.1 mg/dL (8.5-10.1); Creatinine, Blood 3.84 mg/dL (0.60-1.20); Globulin, Blood 3.2 g/dL (2.2-4.0); Potassium, Blood 6.2 mmol/L (3.5-5.5); Total Protein, Blood 6.4 g/dL (6.4-8.2)
--- NOTE | 2022-11-20 06:19 | NUR ---
SHIFT SUMMARY: PT SLEEPING IN BED; PT NOW ON RA WITH SPO2 98< AND LUNG SOUNDS REMAIN UNCHANGED. PT REMAINS SR ON MONITOR WITH HR 80'S AND OCC. PVC'S NOTED; PT DENIES CHEST PAIN/PRESSURE AND SOB AT THIS TIME. MORNING LABS CAME BACK WITH CRITICAL POTASSIUM AT 6.2; VIRA NOTIFIED AND ORDERS RECIEVED. PROVIDER CALLED THIS MORNING AND CONSULTED JAIRO; CALL RECIEVED FROM JAIRO THIS MORNING BY THIS RN AND ORDERS RECIEVED. JAIRO BY TO ASSESS PT AT 0600; ORDERS UPDATED PER VO FROM JAIRO. PT REMAINS A&O X 4, PLEASANT AND FOLLOWING DIRECTIONS. PT COMMUNICATING NEEDS APPROPRIATELY. BED LOWERED, CALL LIGHT IN REACH, WILL REPORT OFF TO ONCOMING RN.
[2022-11-20 11:04] LABS: Bun/Creatinine Ratio 28.1 (12.0-20.0); Creatinine, Blood 4.06 mg/dL (0.60-1.20); Potassium, Blood 5.8 mmol/L (3.5-5.5)
[2022-11-20 11:05] LABS: Calcium, Blood 9.5 mg/dL (8.5-10.1)
[2022-11-20 15:49] LABS: Source, Urine Foley catheter
[2022-11-20 15:57] LABS: Appearance, Urine Cloudy (Clear); Bilirubin, Urine Neg (Neg); Blood, Urine 4+ (Neg); Color, Urine Yellow (P-Yellow); Glucose Qualitative, Urine Neg (Neg); Ketones, Urine Neg (Neg); Leukocyte Esterase, Urine 3+ (Neg); Nitrite, Urine Neg (Neg); Protein, Urine 3+ (Neg); Specific Gravity, Urine 1.025 (1.003-1.022); Urobilinogen, Urine NORM (Normal)
[2022-11-20 17:42] LABS: White Blood Cells, Urine 50-100 /hpf (0-5)
[2022-11-20 17:43] LABS: Bacteria Many /hpf
[2022-11-20 17:45] LABS: Squamous Epithelial Cells Rare /hpf (Few)
--- NOTE | 2022-11-20 18:07 | NUR ---
TRANSFER/END OF SHIFT NOTE: PT TRANSFERRED FROM ICU10 TO [facility] AT 1547. THIS RN REMAINED PRIMARY NURSE THROUGH TRANSFER. NO ACUTE CHANGES THIS SHIFT. PT A&OX4, PLEASANT AND COOPERATIVE WITH CARE. ABLE TO CALL APPROPRIATELY AND MAKE NEEDS KNOWN TO STAFF. HR 70-80'S, NSR WITH PVC'S. SBP 90-110'S, DENIES CP/PRESSURE. SPO2 >90% ON RA, NO NOTICEABLE DYSPNEA OR ACCESSORY MUSCLE USE. HARTLEY CATH IN PLACE FOR RETENTION AND CRITICAL I&0; URINE SPECIMEN SENT THIS SHIFT FOLLOWING HARTLEY PLACEMENT 11/19/22 IN ED. NO BM THIS SHIFT. BICARB INFUSING AT 50 ML/HR PER EMAR. PT INDEPENDENTLY REPOSITIONED FREQUENTLY T/O DAY. CALL LIGHT WITHIN REACH, BED IN LOWEST POSITION. WILL REPORT TO ONCOMING RAJNI RN.
[2022-11-21] VITALS (12 sets, daily range): BP systolic 91–119; BP diastolic 63–82
[2022-11-21 00:18] LABS: Adenovirus F 40/41 Not Detected (NOT DETECT); Campylobacter Sp Not Detected (NOT DETECT); Cryptosporidium Not Detected (NOT DETECT); Cyclospora Cayetanensis Not Detected (NOT DETECT); E. Coli O157 Not Detected (NOT DETECT); Entamoeba Histolytica Not Detected (NOT DETECT); Enteroaggregative E. coli-EAEC Not Detected (NOT DETECT); Enteropathogenic E. coli-EPEC Not Detected (NOT DETECT); Enterotoxigenic E. coli-ETEC Not Detected (NOT DETECT); Giardia Lamblia Not Detected (NOT DETECT); Plesiomonas Shigelloides Not Detected (NOT DETECT); Salmonella Sp Not Detected (NOT DETECT); Shiga Toxin-prod E. coli-STEC Not Detected (NOT DETECT); Shigella/Enteroin E. coli-EIEC Not Detected (NOT DETECT); Vibrio Cholerae Not Detected (NOT DETECT); Vibrio Sp Not Detected (NOT DETECT); Yersinia Enterocolitica Not Detected (NOT DETECT)
[2022-11-21 00:19] LABS: Astrovirus Not Detected (NOT DETECT); Norovirus GI/GII Not Detected (NOT DETECT); Rotavirus A Not Detected (NOT DETECT); Sapovirus Not Detected (NOT DETECT)
[2022-11-21 05:01] LABS: BASOPHILS ABSOLUTE AUTO 0.04 K/mm3 (0.00-0.23); BASOPHILS PERCENT AUTO 1 % (0-2); EOSINOPHILS ABSOLUTE AUTO 0.52 K/mm3 (0.00-0.68); EOSINOPHILS PERCENT AUTO 6 % (0-6); Hematocrit 33.9 % (37.0-53.0); Hemoglobin 10.9 g/dL (13.5-17.5); IMMATURE GRAN ABSOLUTE AUTO 0.02 K/mm3 (0.00-0.10); IMMATURE GRAN PERCENT AUTO 0 % (0-1); LYMPHOCYTES ABSOLUTE AUTO 1.57 K/mm3 (0.84-5.20); LYMPHOCYTES PERCENT AUTO 18 % (21-46); MONOCYTES ABSOLUTE AUTO 1.13 K/mm3 (0.16-1.47); MONOCYTES PERCENT AUTO 13 % (4-13); Mean Corpuscular HGB 31.2 pg (26.0-34.0); Mean Corpuscular HGB Conc 32.2 g/dL (31.5-36.5); Mean Corpuscular Volume 97 fL (80-100); Mean Platelet Volume 12.6 fL (9.1-12.4); NEUTROPHILS ABSOLUTE AUTO 5.36 K/mm3 (1.96-9.15); NEUTROPHILS PERCENT AUTO 62 % (41-73); Platelet Count 101 K/mm3 (150-400); RDW Coefficient Variation 16.2 % (11.7-14.2); RDW Standard Deviation 57.5 fL (35.1-46.3); Red Blood Cell Count 3.49 M/mm3 (4.30-5.90); White Blood Cell Count 8.64 K/mm3 (4.00-11.30)
[2022-11-21 05:42] LABS: Magnesium, Blood 3.4 mg/dL (1.6-2.4)
--- NOTE | 2022-11-21 05:42 | NUR ---
SHIFT SUMMARY PT IS A&OX4, AND HAS CALLED APPROPRAITELY. I DO HAVE THE BED ALARM ON BECAUSE HE HAS BEEN HAVING LOOSE STOOLS AND HAS URGENCY. THE PT IS UNSTEADY ON HIS FEET AND IS A 1-2P SBA TO THE BS. HE WAS PUT ON 1.5L NC WHILE HE SLEEPS BECAUSE HE DESATED TO THE UPPER 80'S ON HIS SP02. AT BASELINE THE PT WEARS 1.5L NC WHEN HE SLEEPS. ON TELE HE HAS BEEN SR 80'S AND HE DENIES ANGINA. BP SOFT BUT STABLE Q2H CHECK DUE TO BEING ON PRESSORS IN ICU PRIOR TO COMING TO PCU. THE PT TESTED POSITIVE FOR CDIFF AND IS ON ISOLATION PERCAUTIONS. SEE NOTES FOR ANY UPDATES.
[2022-11-21 05:43] LABS: Albumin, Blood 2.9 g/dL (3.4-5.0); Anion Gap 7 mmol/L (6-16); Blood Urea Nitrogen 112 mg/dL (8-24); Bun/Creatinine Ratio 24.7 (12.0-20.0); CO2, Blood 24 mmol/L (21-32); Calcium, Blood 8.9 mg/dL (8.5-10.1); Chloride, Blood 105 mmol/L (98-108); Creatinine, Blood 4.54 mg/dL (0.60-1.20); Glomerular Filtration Rate 13 (60-); Glucose, Blood 183 mg/dL (70-99); Phosphorus, Blood 6.6 mg/dL (2.5-4.9); Potassium, Blood 5.2 mmol/L (3.5-5.5); Sodium, Blood 136 mmol/L (136-145)
--- NOTE | 2022-11-21 17:08 | NUR ---
END OF SHIFT NOTE: NO ACUTE EVENTS THIS SHIFT. PT A&OX4 THIS SHIFT, ABLE TO CALL APPROPRIATELY AND COMMUNICATE NEEDS WITH STAFF. HR 70-80'S, NSR WITH PVC'S. SBP 100-110'S. PT DENIES CP/PRESSURE. SPO2 >90% ON RA; PT PLACED ON 1.5L VIA NC WHILE SLEEPING TO KEEP SPO2 >90%. NO OBSERVABLE DYSPNEA OR ACCESSORY MUSCLE USE. HARTLEY CATH REMOVED THIS AM; PT ABLE TO SELF-CATHETERIZE, STATES HE WILL INDEPENDENTLY CATH HIMSELF HE HAS DONE FOR 15 YEARS. 1 BM THIS SHIFT, SEMI-FORMED PER PT REPORT. PT'S AT BEDSIDE THIS PM, APPEARS ANXIOUS ABOUT PT'S CONDITION AND DISCHARGE. EDUCATION COMPLETED BY THIS RN, SEE DOCUMENTATION FOR FURTHER DETAILS. ISOLATION PRECAUTIONS IN PLACE FOR POSITIVE CDIFF RESULT. CALL LIGHT WITHIN REACH, BED IN LOWEST POSITION. WILL REPORT TO ONCOMING NOC RN.
--- NOTE | 2022-11-21 22:35 | NUR ---
PT BEING TRANSFERED TO ROOM 356 REPORT GIVEN TO MARISABEL RAMIREZ RN
--- NOTE | 2022-11-21 23:14 | NUR ---
ASSUMED CARE OF PATIENT AT 2300 UPON HIS TRANSFER FROM PCU VIA HIS BED. TELEMETRY BOX VERIFIED WITH FINE PATCHER, SR 83. DENIES PAIN. PLACED ON ENTERIC PRECAUTIONS FOR C DIFF. PLACED O2 @ 1.5 L/MIN NC PER HIS HOME REGIMEN. A&O X 4, PLEASANT. EDUCATED ABOUT O2 SAFETY, VERBALIZED UNDERSTANDING, HAS NO INCENDIARY DEVICES. CALL LIGHT AND BELONGINGS IN REACH. PROVIDED WITH FRESH ICE WATER, TEMPERATURE IN ROOM IS GOOD PER PT.
[2022-11-22 03:22] VITALS: BP 100/76
[2022-11-22 05:36] LABS: Hemoglobin 10.5 g/dL (13.5-17.5)
[2022-11-22 06:16] LABS: Albumin, Blood 2.8 g/dL (3.4-5.0); Anion Gap 10 mmol/L (6-16); Blood Urea Nitrogen 118 mg/dL (8-24); Bun/Creatinine Ratio 23.1 (12.0-20.0); CO2, Blood 23 mmol/L (21-32); Calcium, Blood 8.7 mg/dL (8.5-10.1); Chloride, Blood 105 mmol/L (98-108); Creatinine, Blood 5.11 mg/dL (0.60-1.20); Glomerular Filtration Rate 11 (60-); Glucose, Blood 125 mg/dL (70-99); Magnesium, Blood 3.4 mg/dL (1.6-2.4); Phosphorus, Blood 6.6 mg/dL (2.5-4.9); Potassium, Blood 4.5 mmol/L (3.5-5.5); Sodium, Blood 138 mmol/L (136-145)
--- NOTE | 2022-11-22 06:21 | NUR ---
SHIFT SUMMARY: NO ACUTE EVENTS. NO EVENTS ON TELEMETRY, SR 80'S. USING O2 @ 1.5 L/MIN NC. GOT UP TO STRAIGHT CATH SELF X 1. DENIED PAIN. SLEPT MOST OF THE NIGHT. OF NOTE, PATIENT HAS COPY OF POLST ON FRONT OF CHART THAT STATES HE WANTS TO BE DNR AND COMFORT MEASURES ONLY, BUT CURRENTLY IS FULL CODE. PLACED PALLIATIVE CARE CONSULT TO SEE IF HE WISHES TO CHANGE THIS.
[2022-11-22 07:38] VITALS: BP 101/81
--- NOTE | 2022-11-22 13:26 | NUR ---
Spoke with Primary RN Kahlil and discussed case. Pt may benefit from code status discussion. Pt sitting in chair and is A&OX4. Pt eating his lunch. Listened as Pt reports being and has 2 adult children. Son that lives in [place] and a daughter who lives in [place]. He reports having several grandchildren. Pt reports being independent of his ADLs. Listened as Pt reports being initialy diagnosed with CKD approximately 5 years ago. Brief review of plan of care and breif discussion regarding current kidney condition and heart condition. Educated on disease process including trajectory. Discussed the importance of planning for the future. 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 He reports taking lots of Pt's to the dialysis center and states he would not want dialysis if kidneys due to not improve. Discussed code status. Educated on life sustaining treatments including risks and implications to CPR/Intubation. Pt reports wishes are leaning towards DNR but would like to discuss further with his . He reports being ok with Full Code for now. Pt expresses appreciation and reports no other concerns at this time. Palliative Care will remain available
[2022-11-22 15:08] VITALS: BP 114/77
--- NOTE | 2022-11-22 18:15 | NUR ---
SHIFT SUMMARY: PT A&O X4. PT PLEASANT AND COOPERATIVE WITH CARE. NO ACUTE CHANGES WITH PT THIS SHIFT. PT HAS BEEN MOSTLY INDEPENDENT IN ROOM. RECEIVING ORAL ABX W/O COMPLICATIONS. PT HAD A COUPLE RUNS OF PVC'S THIS SHIFT. NO C/O CHEST PAIN OR DISCOMFORT THROUGHOUT SHIFT. PT RECEIVED IV BUMEX THIS AM. PT ABLE TO STRAIGHT CATH SELF THROUGHOUT SHIFT. LANDRY IN PALLIATIVE ARRIVED TO TALK TO PT THIS AFTERNOON. PT STATED TO THIS RN THAT HE DOES NOT WANT TO PROCEED WITH DIALYSIS AND WANTS TO BE COMFORT MEASURES ONLY. AT THIS TIME WE ARE WAITING FOR PT TO HAVE DISCUSSION WITH HIS . TELE IN PLACE. CALL LIGHT IN REACH. BED IN LOWEST POSITION. WILL REPORT TO ONCOMING RN.
--- NOTE | 2022-11-23 00:08 | NUR ---
NOTIFIED BY PAINT ROLLER COVER MACHINE SETTER MONITOR THAT PT HAD 5 PVC RUN. WILL CONTINUE TO MONITOR VIA TELE.
[2022-11-23 03:42] VITALS: BP 104/77
[2022-11-23 05:04] LABS: BASOPHILS ABSOLUTE AUTO 0.03 K/mm3 (0.00-0.23); BASOPHILS PERCENT AUTO 1 % (0-2); EOSINOPHILS ABSOLUTE AUTO 0.43 K/mm3 (0.00-0.68); EOSINOPHILS PERCENT AUTO 7 % (0-6); Hematocrit 32.1 % (37.0-53.0); Hemoglobin 10.3 g/dL (13.5-17.5); IMMATURE GRAN ABSOLUTE AUTO 0.01 K/mm3 (0.00-0.10); IMMATURE GRAN PERCENT AUTO 0 % (0-1); LYMPHOCYTES ABSOLUTE AUTO 1.12 K/mm3 (0.84-5.20); LYMPHOCYTES PERCENT AUTO 17 % (21-46); MONOCYTES ABSOLUTE AUTO 0.82 K/mm3 (0.16-1.47); MONOCYTES PERCENT AUTO 13 % (4-13); Mean Corpuscular HGB 31.1 pg (26.0-34.0); Mean Corpuscular HGB Conc 32.1 g/dL (31.5-36.5); Mean Corpuscular Volume 97 fL (80-100); Mean Platelet Volume 11.9 fL (9.1-12.4); NEUTROPHILS ABSOLUTE AUTO 4.01 K/mm3 (1.96-9.15); NEUTROPHILS PERCENT AUTO 62 % (41-73); Platelet Count 97 K/mm3 (150-400); RDW Standard Deviation 56.5 fL (35.1-46.3); Red Blood Cell Count 3.31 M/mm3 (4.30-5.90); White Blood Cell Count 6.42 K/mm3 (4.00-11.30)
--- NOTE | 2022-11-23 05:25 | NUR ---
SHIFT SUMMARY NOC PT A/O X 4. PLEASANT AND COOPERATIVE WITH CARE. NO ACUTE CHANGES TO REPORT. PT ON TELE RUNNING SINUS RHYTHM WITH VENTRICULAR TRIGEMINY AT TIMES @ 88 BPM. PT 24HR URINE PROTEIN COLLECTION BEGAN 11/22/22 @ 2044 AND WILL CONCLUDE ON 11/23/22 @ 2044. PT REFUSED DIALYSIS PORT PLACEMENT AND HAS PALLIATIVE CARE CONSULT ALONG WITH TO DISCUSS CHANGE TO DNR STATUS AND PUT ON COMFORT CARE MEASURES. PT IS RECEIVING PO VANCOMYCIN FOR C DIFF INFECTION AND IS ON ENTERIC ISOLATION PRECAUTIONS. PT IS CURRENTLY RESTING WITH BED IN LOWEST POSITION, AND CALL LIGHT WITHIN REACH.
[2022-11-23 05:48] LABS: Magnesium, Blood 3.1 mg/dL (1.6-2.4); Uric Acid, Blood 7.2 mg/dL (3.5-7.2)
[2022-11-23 05:49] LABS: Albumin, Blood 2.9 g/dL (3.4-5.0); Anion Gap 10 mmol/L (6-16); Blood Urea Nitrogen 117 mg/dL (8-24); Bun/Creatinine Ratio 24.1 (12.0-20.0); CO2, Blood 23 mmol/L (21-32); Calcium, Blood 8.6 mg/dL (8.5-10.1); Chloride, Blood 106 mmol/L (98-108); Creatinine, Blood 4.86 mg/dL (0.60-1.20); Glomerular Filtration Rate 12 (60-); Glucose, Blood 144 mg/dL (70-99); Potassium, Blood 4.1 mmol/L (3.5-5.5); Sodium, Blood 139 mmol/L (136-145)
[2022-11-23 08:09] VITALS: BP 130/82
--- NOTE | 2022-11-23 13:37 | NUR ---
This RN called pt's daughter Suzanna to explain current health status. At this point, pt's chart shows stage 3 CKD, as well as CHF. Pt's discharge plan is to d/c once nephrology gives the ok. The pt is not needing dialysis at this time, and this was one of the biggest questions the pt's daughter had. She v/u regarding acute vs chronic kidney failure.
--- NOTE | 2022-11-23 13:54 | NUR ---
Pt's code status is DNR per patient. He reports giving a copy of his POLST to "someone at the hospital". Unsure who that person is, but Dr. Trimble gives v/o for DNR status. Will follow up with pt on POLST, may fill out a new one.
[2022-11-23 16:03] VITALS: BP 137/84
--- NOTE | 2022-11-23 18:33 | NUR ---
THE PATIENT IS A&O X4, FOLLOWS COMMANDS AND IS PLEASANT TO VISIT WITH. THE PATIENT HAS DEVELOPED SWELLING IN HIS GENITALS AND HAS REQUESTED HELP WITH HIS STRAIGHT CATHING. THE PATIENT'S DOCTOR WAS CALLED AND NOTIFIED ABOUT THE SWELLING AND SAID TO LAY THE PATIENT DOWN. THE PATIENT STATES THAT THERE IS NO PAIN AT THIS TIME, I HELPED HIM WITH HIS CATH AND GRAINED 700 MLS OF URINE OUR. I WILL CONTINUE TO MONITOR HIM
[2022-11-23 19:14] VITALS: BP 133/68
[2022-11-23 22:14] LABS: Protein, Urine Quantitative 9.6 mg/dL (0.0-11.9)
[2022-11-24 02:52] VITALS: BP 102/58
--- NOTE | 2022-11-24 03:53 | NUR ---
NOTIFIED BY [employer] PT HAD 6 BEAT RUN OF V TACH. PT ASYMPTOMATIC.
--- NOTE | 2022-11-24 04:52 | NUR ---
SHIFT SUMMARY NOC PT A/O X 4. PLEASANT AND COOPERATIVE WITH CARE. NO ACUTE CHANGES TO REPORT. PT CHANGED TO DNR CODE STATUS YESTERDAY. DR GILL WAS ON FLOOR AFTER SHIFT CHANGE AND GAVE ORDERS TO INCREASE BUMEX BID, AND PLACE PT ON 1L FLUID RESTRICTION. PT SCOTUM IS 3+ EDEMATOUS, AND PT REQUIRES NURSING STAFF TO STRAIGHT CATH. STRAIGHT CATH WAS PERFORMED X 2 SO FAR DURING SHIFT. ALL URINE COLLECTIONS HAVE BEEN SENT TO LAB. PT AGAIN STATED DESIRE NOT TO HAVE DIALYSIS PORT PLACED. PT ON TELE RUNNING SINUS RHYTHM @ 96 BPM. PT IS CURRENTLY RESTING WITH BED IN LOWEST POSITION, AND CALL LIGHT WITHIN REACH.
[2022-11-24 05:18] LABS: BASOPHILS ABSOLUTE AUTO 0.02 K/mm3 (0.00-0.23); BASOPHILS PERCENT AUTO 0 % (0-2); EOSINOPHILS ABSOLUTE AUTO 0.32 K/mm3 (0.00-0.68); EOSINOPHILS PERCENT AUTO 6 % (0-6); Hematocrit 30.8 % (37.0-53.0); Hemoglobin 9.8 g/dL (13.5-17.5); IMMATURE GRAN ABSOLUTE AUTO 0.01 K/mm3 (0.00-0.10); IMMATURE GRAN PERCENT AUTO 0 % (0-1); LYMPHOCYTES ABSOLUTE AUTO 0.78 K/mm3 (0.84-5.20); LYMPHOCYTES PERCENT AUTO 13 % (21-46); MONOCYTES ABSOLUTE AUTO 0.74 K/mm3 (0.16-1.47); MONOCYTES PERCENT AUTO 13 % (4-13); Mean Corpuscular HGB Conc 31.8 g/dL (31.5-36.5); Mean Corpuscular Volume 98 fL (80-100); Mean Platelet Volume 11.8 fL (9.1-12.4); NEUTROPHILS ABSOLUTE AUTO 3.97 K/mm3 (1.96-9.15); NEUTROPHILS PERCENT AUTO 68 % (41-73); Platelet Count 93 K/mm3 (150-400); RDW Coefficient Variation 16.1 % (11.7-14.2); RDW Standard Deviation 57.1 fL (35.1-46.3); Red Blood Cell Count 3.16 M/mm3 (4.30-5.90); White Blood Cell Count 5.84 K/mm3 (4.00-11.30)
[2022-11-24 05:58] LABS: Albumin, Blood 2.8 g/dL (3.4-5.0); Anion Gap 8 mmol/L (6-16); Blood Urea Nitrogen 108 mg/dL (8-24); CO2, Blood 25 mmol/L (21-32); Calcium, Blood 8.5 mg/dL (8.5-10.1); Chloride, Blood 104 mmol/L (98-108); Creatinine, Blood 4.15 mg/dL (0.60-1.20); Glomerular Filtration Rate 14 (60-); Glucose, Blood 179 mg/dL (70-99); Magnesium, Blood 2.9 mg/dL (1.6-2.4); Phosphorus, Blood 5.2 mg/dL (2.5-4.9); Potassium, Blood 3.5 mmol/L (3.5-5.5); Sodium, Blood 137 mmol/L (136-145)
[2022-11-24 08:10] VITALS: BP 127/80
--- NOTE | 2022-11-24 16:14 | NUR ---
THE PATIENT IS A&O X4, FOLLOWS COMANDS AND IS PLEASENT TP VISIT WITH, THE PATIENT HAS ASKE FOR HELP STRIATH CATHING AND IT HAS BEEN DONE THREE TIMES THIS SHIFT. THE PATIENT IS RESTING AT THIS TIME AND REPORT WAS GIVEN TO MANDA CROOKS.
--- NOTE | 2022-11-24 18:30 | NUR ---
ASSUMED CARE OF PATIENT ASSUMED CARE OF PATIENT AT 1630. PATIENT STATES THAT HE WANTS TO TRY TO CATH HIMSELF NOW THAT SWELLING IS DOWN. REVIEWED SELF CATHING PROCESS WITH PATIENT. PATIENT STATES THAT HE HAD ONE FORMED BM THIS EVENING
[2022-11-24 19:36] VITALS: BP 121/77
[2022-11-25 04:27] VITALS: BP 141/81
[2022-11-25 04:32] LABS: BASOPHILS ABSOLUTE AUTO 0.02 K/mm3 (0.00-0.23); BASOPHILS PERCENT AUTO 0 % (0-2); EOSINOPHILS ABSOLUTE AUTO 0.42 K/mm3 (0.00-0.68); EOSINOPHILS PERCENT AUTO 7 % (0-6); Hematocrit 31.5 % (37.0-53.0); IMMATURE GRAN ABSOLUTE AUTO 0.01 K/mm3 (0.00-0.10); IMMATURE GRAN PERCENT AUTO 0 % (0-1); LYMPHOCYTES ABSOLUTE AUTO 0.88 K/mm3 (0.84-5.20); LYMPHOCYTES PERCENT AUTO 15 % (21-46); MONOCYTES ABSOLUTE AUTO 0.73 K/mm3 (0.16-1.47); MONOCYTES PERCENT AUTO 13 % (4-13); Mean Corpuscular HGB 30.9 pg (26.0-34.0); Mean Corpuscular HGB Conc 31.7 g/dL (31.5-36.5); Mean Corpuscular Volume 97 fL (80-100); Mean Platelet Volume 11.6 fL (9.1-12.4); NEUTROPHILS ABSOLUTE AUTO 3.72 K/mm3 (1.96-9.15); NEUTROPHILS PERCENT AUTO 64 % (41-73); Platelet Count 100 K/mm3 (150-400); RDW Coefficient Variation 16.4 % (11.7-14.2); RDW Standard Deviation 58.4 fL (35.1-46.3); Red Blood Cell Count 3.24 M/mm3 (4.30-5.90); White Blood Cell Count 5.78 K/mm3 (4.00-11.30)
[2022-11-25 04:59] LABS: Magnesium, Blood 2.8 mg/dL (1.6-2.4)
[2022-11-25 05:00] LABS: Albumin, Blood 2.9 g/dL (3.4-5.0); Anion Gap 7 mmol/L (6-16); Blood Urea Nitrogen 103 mg/dL (8-24); Bun/Creatinine Ratio 30.2 (12.0-20.0); CO2, Blood 27 mmol/L (21-32); Calcium, Blood 8.7 mg/dL (8.5-10.1); Chloride, Blood 105 mmol/L (98-108); Creatinine, Blood 3.41 mg/dL (0.60-1.20); Glomerular Filtration Rate 18 (60-); Glucose, Blood 167 mg/dL (70-99); Phosphorus, Blood 4.4 mg/dL (2.5-4.9); Potassium, Blood 3.1 mmol/L (3.5-5.5); Sodium, Blood 139 mmol/L (136-145)
[2022-11-25 07:16] VITALS: BP 123/97
[2022-11-25] MEDS ORDERED: POTA10T PO (16:03)
[2022-11-25] MEDS ORDERED: VANCOCIN HCL125 MG PO (16:04)
--- NOTE | 2022-11-25 17:11 | NUR ---
PT DISCHARGED HOME. DC INSTRUCTIONS AND EDUCATION MATERIAL EXPLAINED TO PT. NO NEW QUESTIONS OR CONCERNS. IV AND TELE DC'D. PT TOLERATED WELL. [facility]. PT DRESSED INDEPENDENTLY. ALL BELONGINGS GATHERED AND SENT HOME WITH PT. PT TAKEN BY WHEELCHAIR TO WAITING VEHICLE.
[2022-11-26 17:08] LABS: ANTIMYELOPEROXIDASE (MPO) ABS <0.2 units (0.0-0.9); ANTIPROTEINASE 3 (PR-3) ABS <0.2 units (0.0-0.9); ATYPICAL PANCA <1:20 titer (Neg:<1:20); CYTOPLASMIC (C-ANCA) <1:20 titer (Neg:<1:20); PERINUCLEAR (P-ANCA) <1:20 titer (Neg:<1:20)
[2022-11-27 14:10] LABS: IMMUNOGLOBULIN A, QN, SERUM 579 mg/dL (61-437); IMMUNOGLOBULIN G, QN, SERUM 717 mg/dL (603-1613); IMMUNOGLOBULIN M, QN, SERUM 11 mg/dL (15-143)
== END 2022-11-25 16:38 | disposition home or self-care (01) | DRG 682 ==
LOC: ER 20:01 → ICUE 22:49 → MEDS 22:49 → PCU 22:49 → ICUE 23:03 → PCU 11-20 15:49 → MEDS 11-21 23:00
PROVIDERS: Family Medicine; Internal Medicine Nephrology; Student in an Organized Health Care Education/Training Program; ADMIT Internal Medicine
PROC: 3E033XZ Introduction of Vasopressor into Peripheral Vein, Percutaneous Approach (ICD-10-PCS; principal; 2022-11-19)
PROC: 5A2204Z Restoration of Cardiac Rhythm, Single (ICD-10-PCS; 2022-11-19)
PROC: 0T9B70Z Drainage of Bladder with Drainage Device, Via Natural or Artificial Opening (ICD-10-PCS; 2022-11-20)
DX: N17.0 Acute kidney failure with tubular necrosis (principal); I50.23 Acute on chronic systolic (congestive) heart failure; J96.01 Acute respiratory failure with hypoxia; I13.0 Hypertensive heart and chronic kidney disease with heart failure and stage 1 through stage 4 chronic kidney disease, or unspecified chronic kidney disease; I47.20 Ventricular tachycardia, unspecified; E87.20 Acidosis, unspecified; A04.72 Enterocolitis due to Clostridium difficile, not specified as recurrent; I48.92 Unspecified atrial flutter; I95.9 Hypotension, unspecified; D63.1 Anemia in chronic kidney disease; N25.81 Secondary hyperparathyroidism of renal origin; E11.22 Type 2 diabetes mellitus with diabetic chronic kidney disease; E78.5 Hyperlipidemia, unspecified; K21.9 Gastro-esophageal reflux disease without esophagitis; N18.30 Chronic kidney disease, stage 3 unspecified; E11.65 Type 2 diabetes mellitus with hyperglycemia; I25.10 Atherosclerotic heart disease of native coronary artery without angina pectoris; I25.2 Old myocardial infarction; I48.91 Unspecified atrial fibrillation; E86.9 Volume depletion, unspecified; E86.0 Dehydration; B96.89 Other specified bacterial agents as the cause of diseases classified elsewhere; E83.39 Other disorders of phosphorus metabolism; E88.09 Other disorders of plasma-protein metabolism, not elsewhere classified; E87.6 Hypokalemia; E83.41 Hypermagnesemia; M10.9 Gout, unspecified; D69.6 Thrombocytopenia, unspecified; E83.52 Hypercalcemia; E87.5 Hyperkalemia; K44.9 Diaphragmatic hernia without obstruction or gangrene; Z95.1 Presence of aortocoronary bypass graft; Z98.890 Other specified postprocedural states; Z86.19 Personal history of other infectious and parasitic diseases; Z79.899 Other long term (current) drug therapy; Z79.4 Long term (current) use of insulin; Z79.01 Long term (current) use of anticoagulants; Z87.891 Personal history of nicotine dependence; Z95.810 Presence of automatic (implantable) cardiac defibrillator
CPT/HCPCS: 36415; 51702; 71045; 74176; 74177; 80047; 80048; 80053; 80069; 81001; 82550; 82803; 82947; 83516; 83520; 83605; 83690; 83735; 83880; 84100; 84132; 84156; 84484; 84550; 85014; 85018; 85025; 85027; 86037; 86038; 86334; 87077; 87086; 87186; 87324; 87507; 92960; 93005; 93010; 94644; 94660; 94664; 94760; 94762; 96360-59; 96365-59; 96367-59; 96375-59; 97110; 97116; 97162; 97166; 97530; 97535; 99285-25; 99291-25; A9270; C8929; J0282; J0881; J1644; J1815; J1940; J2704; J3475; J3480; J7030; J7060; Q9957; Q9967

== ENCOUNTER → 2022-11-28 | Outpatient (CLI) | payer MEDICARE, OTHER ==
[~2022-11-28] MED LIST changes: +VANCOCIN HCL125 MG PO
[2022-11-28 20:05] LABS: Microalbumin, Urine Quant. 33.5 mg/L (0.000-20.000)
[2022-12-03 14:10] LABS: M-SPIKE, % 7.6 % (Not Observed); PROTEIN,TOTAL,URINE 10.9 mg/dL (Not Estab.)
== END ==
LOC: LAB 16:25 → LAB SHORT 16:25
PROVIDERS: Internal Medicine Nephrology
DX: N18.30 Chronic kidney disease, stage 3 unspecified (principal); D63.1 Anemia in chronic kidney disease; N25.81 Secondary hyperparathyroidism of renal origin; R76.9 Abnormal immunological finding in serum, unspecified; R94.5 Abnormal results of liver function studies; R94.6 Abnormal results of thyroid function studies; D51.8 Other vitamin B12 deficiency anemias; D52.8 Other folate deficiency anemias; D50.9 Iron deficiency anemia, unspecified
CPT/HCPCS: 81050; 82043; 82570; 84156; 84166; 86335

== ENCOUNTER 2022-12-21 22:39 | Observation (INO) | payer MEDICARE, OTHER ==
[~2022-12-21] VITALS: Ht 180.3 cm; Wt 89.8 kg
[2022-12-21 23:11] LABS: BASOPHILS ABSOLUTE AUTO 0.06 K/mm3 (0.00-0.23); BASOPHILS PERCENT AUTO 1 % (0-2); EOSINOPHILS ABSOLUTE AUTO 0.36 K/mm3 (0.00-0.68); EOSINOPHILS PERCENT AUTO 4 % (0-6); Hematocrit 37.6 % (37.0-53.0); Hemoglobin 11.8 g/dL (13.5-17.5); IMMATURE GRAN ABSOLUTE AUTO 0.02 K/mm3 (0.00-0.10); IMMATURE GRAN PERCENT AUTO 0 % (0-1); LYMPHOCYTES ABSOLUTE AUTO 1.11 K/mm3 (0.84-5.20); LYMPHOCYTES PERCENT AUTO 13 % (21-46); MONOCYTES ABSOLUTE AUTO 0.71 K/mm3 (0.16-1.47); MONOCYTES PERCENT AUTO 9 % (4-13); Mean Corpuscular HGB 30.6 pg (26.0-34.0); Mean Corpuscular HGB Conc 31.4 g/dL (31.5-36.5); Mean Corpuscular Volume 97 fL (80-100); Mean Platelet Volume 11.9 fL (9.1-12.4); NEUTROPHILS ABSOLUTE AUTO 6.02 K/mm3 (1.96-9.15); NEUTROPHILS PERCENT AUTO 73 % (41-73); Platelet Count 127 K/mm3 (150-400); RDW Coefficient Variation 16.7 % (11.7-14.2); RDW Standard Deviation 59.5 fL (35.1-46.3); Red Blood Cell Count 3.86 M/mm3 (4.30-5.90); White Blood Cell Count 8.28 K/mm3 (4.00-11.30)
[2022-12-21 23:32] LABS: Albumin, Blood 3.2 g/dL (3.4-5.0); Albumin/Globulin Ratio 0.9 (0.8-1.8); Bilirubin, Total 0.7 mg/dL (0.1-1.0); Bun/Creatinine Ratio 23.9 (12.0-20.0); Calcium, Blood 8.7 mg/dL (8.5-10.1); Creatinine, Blood 3.18 mg/dL (0.60-1.20); Globulin, Blood 3.7 g/dL (2.2-4.0); Potassium, Blood 5.8 mmol/L (3.5-5.5); Total Protein, Blood 6.9 g/dL (6.4-8.2)
[2022-12-22 01:52] LABS: Influenza A, PCR NEGATIVE (NEGATIVE); Influenza B, PCR NEGATIVE (NEGATIVE); Resp Syncytial Virus, PCR NEGATIVE (NEGATIVE); SARS-Cov-2 (COVID-19) PCR, MMC NEGATIVE (NEGATIVE)
[2022-12-22 11:27] LABS: Calcium, Blood 8.4 mg/dL (8.5-10.1); Creatinine, Blood 3.52 mg/dL (0.60-1.20); Potassium, Blood 5.1 mmol/L (3.5-5.5)
[2022-12-22 13:00] VITALS: BP 62/53
--- NOTE | 2022-12-22 14:08 | NUR ---
Upon respoding to a call-back, I visit with patient's spouse, Aleshia. I conduct a brief life review, explore patient's spiritual believes and hear Aleshia's story of the events that led to his demise. She greives appropriately and is very tearful at times. I provide grief support, therapeutic listening and calming presence and prayer. Aleshia responded well and showed signs of being comforted.
== END 2022-12-22 13:40 ==
LOC: ER 22:39 → ERHOLD 22:40 → EDBEDREQ 12-22 05:42 → PCU 12-22 13:00
PROVIDERS: Student in an Organized Health Care Education/Training Program; ADMIT Internal Medicine
DX: I13.0 Hypertensive heart and chronic kidney disease with heart failure and stage 1 through stage 4 chronic kidney disease, or unspecified chronic kidney disease (principal); E11.22 Type 2 diabetes mellitus with diabetic chronic kidney disease; N18.4 Chronic kidney disease, stage 4 (severe); I50.23 Acute on chronic systolic (congestive) heart failure; J96.01 Acute respiratory failure with hypoxia; E87.5 Hyperkalemia; I48.91 Unspecified atrial fibrillation; E78.5 Hyperlipidemia, unspecified; K21.9 Gastro-esophageal reflux disease without esophagitis; I25.2 Old myocardial infarction; Z79.01 Long term (current) use of anticoagulants; Z79.4 Long term (current) use of insulin; Z79.899 Other long term (current) drug therapy; Z20.822 Contact with and (suspected) exposure to COVID-19
CPT/HCPCS: 0241U; 51702; 71046; 80048; 80053; 82947; 83880; 84484; 85025; 93005; 93010; 96361; 96374; 96375; 99291-25; A9270; J0282; J1815; J1940; J2270; J7030; J7060